=== PATIENT | female | born 2000 | race African-American/Black ===

== ENCOUNTER 2022-10-18 15:37 | Emergency (ER) | payer OTHER ==
--- OUTSIDE RECORDS SUMMARY | 2022-10-18 15:40 | XMS REPORT | Continuity of Care Document ---
:2000 Author Organization [facility] t Address [address] [facility] [address]. [address] [place] [address] Care Team Providers Name Role Phone PCP, PATIENT DOES NOT HAVE A Primary Care Physician UnavailGiselle Bansal MD Attending Clinician GISELLE MICHAEL Attending Clinician Unavailable Connor CHOI, Lauren K.H. Attending Clinician Maribel BOUDREAUX Attending Clinician Unavailable Maribel Romero Attending Clinician Emilie Heller Attending Clinician Unavailable SHAYY MENA Attending Clinician Unavailable Shayy Wei Attending Clinician [phone] Doctor Unassigned, [place] Attending Clinician Unavailable Carol Garcia Attending Clinician CAROL CHOI Attending Clinician Unavailable JOE ACHARYA Attending Clinician Unavailable Joe Acharya NP Attending Clinician ENDY VU Attending Clinician Unavailable Endy Vu MD Attending Clinician LAUREN RYAN Attending Clinician Unavailable СЕРГЕЙ AREVALO Attending Clinician Unavailable BRAD CARVAJAL Attending Clinician Unavailable SHAYY MENA Admitting Clinician Unavailable JOE ACHARYA Admitting Clinician Unavailable СЕРГЕЙ AREVALO Admitting Clinician Unavailable Payers Payer Name Policy Type Policy Number Effective Date Expiration Date Cholo BESS [id number] 2020 HEALTH 00:00:00 Problems Condition Condition Condition Status Onset Resolution Last Treating Co mments Source Name Details Category Date Date Treatment Clinician Date Abdominal Abdominal Disease Active Uni vers bloating bloating 1-27 ity of 00:00: Medical Branch Other Other Disease Active Univers general general 1-27 [place] of [place] advice and advice 00 Ut dical for for Branch contracept contracept jed jed management management BMI BMI Disease Active 2020-06 Univers 37.0-37.9, 37.0-37.9, 2-28 it y of adult adult 00:00: [place] [facility] Nausea and Nausea and Disease Active 2020-06 U nivers vomiting, vomiting, 2-28 ity of intractabi [place] of lity of 00 Medical vomiting vomiting Branch not not specified, specified, unspecifie unspecifie d vomiting d vomiting type type Screening Screening Disease Active Uni vers examinatio examinatio 8-20 it y of n for STD n [place] ST[place] ([place]ually (sexually 00 Medi maico transmitte transmitte Br anch d disease) d disease) [place] Disease Active Univers contracept contracept 8-20 it y of ion ion 00:00: [place] [facility] Allergies, Adverse Reactions, Alerts Allergy Allergy Status Severity Reaction(s) Onset Inactive Treating Comm ents Source Name Type Date Date Clinician NO KNOWN Drug Active Univers ALLERGIE Class ity of S [facility] Social History Social Habit Start Date Stop Date Quantity Comments Source Exposure to 2021-12-07 2021-12-17 Yes [facility] SARS-CoV-2 00:00:00 05:04:00 [place] [facility] (event) Branch Alcohol intake 2021-12-17 2021-12-17 Current University of 00:00:00 00:00:00 non-drinker of [facility] alcohol (finding) [place] Tobacco use and 2020-01-25 2020-01-25 Smokeless tobacco Un iversity of exposure 00:00:00 00:00:00 non-user [facility] Sex Assigned At 2000 2000 Universit y of 00:00:00 00:00:00 [facility] Smoking Status Start Date Stop Date Source Never smoked tobacco [facility] Medications Ordered Filled Start Stop Current Ordering Indication Dosage Frequency Signature Comments Components Source Medication Medication Date Date Medication? Clinician (SIG) Name Name ibuprofen 2021- No 800mg 800 mg, Uni vers (IBU) 12-17 Oral, ity of tablet 800 10:15: 10:13 ONCE, 1 [place] mg 00 :00 dose, On Medical Wed Branch 12/17/21 at 0515, HECTOR ibuprofen Yes [id number] 800mg Take 1 Univers 800 mg 7-13 tablet by ity of tablet 00:00: mouth [place] 00 every 8 Medical (eight) Branch hours as needed for Temp > 38.5 C or Pain (scale 4-6). benzonatate Yes [id number] 200mg Take 1 Univers 200 mg 7-13 capsule by ity of capsule 00:00: mouth 3 [place] 00 (three) Medical times Branch daily as needed for Cough. ondansetron Yes [id number] 4mg Take 1 Univers (ZOFRAN) 4 7-13 tablet by ity of mg tablet 00:00: mouth [place] 00 every 8 Medical (eight) Branch hours as needed for Nausea and Vomiting (N/V). dicyclomine 2021- No 20mg 20 mg, Uni vers (BENTYL) 07-30 Oral, ity of capsule 20 06:00: 05:05 ONCE, 1 [place] mg 00 :00 dose, On Medical Wed Branch 07/30/21 at 0000, Routine dicyclomine 0 Yes [id number] 20mg Take 1 Univers 20 mg 2-22 tablet by ity of tablet 00:00: mouth 4 [place] (four) Medical times Branch daily. dicyclomine 0 Yes [id number] 20mg Take 1 Univers 20 mg 2-22 tablet by ity of tablet 00:00: mouth 4 [place] (four) Medical times Branch daily. dicyclomine 0 Yes [id number] 20mg Take 1 Univers 20 mg 2-22 tablet by ity of tablet 00:00: mouth 4 [place] (four) Medical times Branch daily. albuterol Yes [id number] 2{puff} Inhale 2 Univers 90 6-12 Puffs ity of mcg/actuati 00:00: every 4 [place] on inhaler 00 (four) Medical hours as Branch needed for Wheezing or Shortness of Breath. albuterol Yes [id number] 2{puff} Inhale 2 Univers 90 6-12 Puffs ity of mcg/actuati 00:00: every 4 [place] on inhaler 00 (four) Medical hours as Branch needed for Wheezing or Shortness of Breath. albuterol Yes [id number] 2{puff} Inhale 2 Univers 90 6-12 Puffs ity of mcg/actuati 00:00: every 4 [place] on inhaler 00 (four) Medical hours as Branch needed for Wheezing or Shortness of Breath. albuterol Yes [id number] 2{puff} Inhale 2 Univers 90 6-12 Puffs ity of mcg/actuati 00:00: every 4 [place] on inhaler 00 (four) Medical hours as Branch needed for Wheezing or Shortness of Breath. fluocinolon Yes Univer s e 0.01 % 4-07 ity of body oil 00:00: [place] [facility] fluocinolon 0 Yes Univer s e 0.01 % 4-07 ity of body oil 00:00: [place] [facility] fluocinolon 2016-0 Yes Univer s e 0.01 % 4-07 ity of body oil 00:00: [place] [facility] fluocinolon Yes Univer s e 0.01 % 4-07 ity of body oil 00:00: [place] 00 Medical Branch fluticasone [id number] Yes Univer s 50 4-05 ity of mcg/actuati 00:00: [place] on nasal 00 Medical spray Branch mometasone 0 Yes Univers 0.1 % 4-05 ity of ointment 00:00: [place] 00 Medical Branch fluticasone [id number] Yes Univer s 50 4-05 ity of mcg/actuati 00:00: [place] on nasal 00 Medical spray Branch mometasone [id number] Yes Univers 0.1 % 4-05 ity of ointment 00:00: [place] 00 Medical Branch fluticasone 0 Yes Univer s 50 4-05 ity of mcg/actuati 00:00: [place] on nasal 00 Medical spray Branch mometasone Yes Univers 0.1 % 4-05 ity of ointment 00:00: [place] 00 Medical Branch fluticasone Yes Univer s 50 4-05 ity of mcg/actuati 00:00: [place] on nasal 00 Medical spray Branch mometasone Yes Univers 0.1 % 4-05 ity of ointment 00:00: [place] 00 Medical Branch Vital Signs Vital Name Observation Time Observation Value Comments Source Body temperature 2021-12-17 11:11:00 38.11 Tory [facility] Systolic blood 2021-12-17 10:06:00 112 mm[Hg] Univer sity of pressure [facility] Diastolic blood 2021-12-17 10:06:00 73 mm[Hg] Unive rsity of pressure [facility] Heart rate 2021-12-17 10:06:00 100 /min [facility] Respiratory rate 2021-12-17 10:06:00 18 /min [facility] Body height 2021-12-17 10:06:00 157.5 cm [facility] Body weight 2021-12-17 10:06:00 86.183 kg [facility] BMI 2021-12-17 10:06:00 34.75 kg/m2 [facility] Oxygen saturation in 2021-12-17 10:06:00 100 /min [facility] blood by [facility] Pulse oximetry Branch Systolic blood 2021-07-30 03:20:00 133 mm[Hg] Univer sity of pressure [facility] Diastolic blood 2021-07-30 03:20:00 68 mm[Hg] Unive rsity of pressure [facility] Heart rate 2021-07-30 03:20:00 85 /min [facility] Body temperature 2021-07-30 03:20:00 37.22 Tory [facility] Respiratory rate 2021-07-30 03:20:00 18 /min [facility] Body height 2021-07-30 03:20:00 157.5 cm [facility] Body weight 2021-07-30 03:20:00 87.091 kg [facility] BMI 2021-07-30 03:20:00 35.12 kg/m2 [facility] Oxygen saturation in 2021-07-30 03:20:00 100 /min [facility] Arterial blood by [facility] Pulse oximetry Branch Procedures Procedure Date / Time Performed Performing Clinician Robb e RAPID INFLUENZA A/B 2021-12-17 10:12:00 Giselle Michael [facility] COVID-19 (ID NOW RAPID 2021-12-17 10:12:00 Giselle Michael [facility] TESTING) [facility] Branch CONSENT/REFUSAL FOR 2021-12-17 09:57:24 Doctor Unassigned, No Un iversity of [place] DIAGNOSIS AND Name Medical [place] TREATMENT POCT TEST 2021-07-30 03:24:00 Giselle Michael [facility] URINALYSIS 2021-07-30 03:23:00 Giselle Michael [facility] CONSENT/REFUSAL FOR 2021-07-30 03:07:06 Doctor Unassigned, No Un iversity of [place] DIAGNOSIS AND Name Medical [place] TREATMENT Encounters Start End Encounter Admission Attending Care Care Encounter Source Date/Time Date/Time Type Type Clinicians Facility Department ID 2021-04-07 Emergency [facility] [id number] [facility]-07 Emergency [facility] [id number] Univers 02:40:27 ity of [facility] 2021-04-07 Emergency [facility] [id number] Univers 00:50:22 ity of [facility] 2021-04-06 Emergency [facility] [id number] Univers 04:02:40 ity of [facility] 2021-04-05 Emergency [facility] [id number] Univers 18:49:56 ity of [facility] 2021-04-05 Emergency [facility] [id number] Univers 17:13:06 ity of [facility] 2021-04-05 Emergency [facility] [id number] Univers 01:27:27 ity of [facility] 2021-12-17 2021-12-17 Emergency [facility] [id number] Univers 05:07:00 06:44:00 Giselle BAKER [id number] ity of [id number] [id number] [address] 2021-12-17 2021-12-17 Emergency X ELIZABETH, [facility] ERT [id number] Univers 05:07:00 06:44:00 ANIYAREMYLI ity of [facility] 2021-09-07 2021-09-07 [place] [facility] [id number] Univers 00:00:00 00:00:00 Sendil Candei BAKER [id number] ity of [place] [id number] [facility] [id number] Ut dical NAL 059 Branch [facility] 2021-07-29 2021-07-29 Emergency X JANUSZ K [facility] ERT [id number] Univers 21:38:00 23:12:00 ity of [facility] 2021-07-29 2021-07-29 Emergency Janusz, K [facility] [id number] Univers 21:38:00 23:12:00 Kenzie BAKER [id number] i ty of [id number] [id number] [address] 2021-07-18 2021-07-18 Telephone [facility] [id number] Univers 00:00:00 00:00:00 Emilie BAKER [id number] ity [facility] [id number] [facility] [id number] [facility] 806 [place] 2021-07-17 2021-07-17 Outpatient R [facility] [id number] Univers 16:13:22 23:59:00 SHAYY tinsley f [facility] 2021-07-17 2021-07-17 [facility] [id number] Univers 16:13:22 23:59:00 Encounter Shayy BAKER [id number] ity [facility] [id number] [facility] [id number] [address] 2021-07-17 2021-07-17 [facility] [id number] Univers 16:13:22 23:59:00 SHAYY meza [facility] 2021-07-17 2021-07-17 Orders Doctor SANTO [id number] Univers 00:00:00 00:00:00 Only Unassigned, ISI [id number] ity of [place] [facility] [id number] [place] [id number] [place] [address] Branch 2021-07-03 2021-07-03 [facility] [id number] Univers 16:00:00 16:41:07 SHAYY meza [facility] 2021-07-03 2021-07-03 [facility] [id number] Univers 16:00:00 16:41:07 Visit Shayy Sky [employer] DIRECT[employer] [id number] ity [facility] [id number] [place] as MATERNAL [id number] [facility] ical & CHILD [address] [place] [address] 2021-06-03 2021-06-03 Office [facility] [id number] Univers 08:30:00 10:31:02 Visit Carol Amaro [employer] DIRECT[employer] [id number] ity of [facility] [id number] [place] as MATERNAL [id number] Med ical & CHILD [address] [place] [address] 2021-06-03 2021-06-03 Outpatient Sondra CHOI [facility] [id number] Univers 08:30:00 10:31:02 CAROL tse o susana [facility] 2021-06-03 2021-06-03 Outpatient R STEPH [facility] [id number] Univers 08:30:00 08:30:00 CAROL tse o [facility] 2021-06-03 2021-06-03 Outpatient Sondra CHOI [facility] [id number] Univers 08:30:00 08:30:00 EMILYEVERETT tse o [facility] 2021-06-03 2021-06-03 Orders Doctor BLANCHARD [id number] Univers 00:00:00 00:00:00 Only Unassigned, ISI [id number] ity of [place] [facility] [id number] [place] [id number] [facility] 009 [place] 2021-04-06 2021-04-06 Emergency [facility] [id number] Univers 16:27:00 20:45:00 JOE tse [facility] 2021-04-06 2021-04-06 Emergency [facility] [id number] Univers 16:27:00 20:45:00 Joe G OLIVIA [id number] ity [facility] [id number] [facility] [id number] [facility] 084 [place] 2021-04-05 2021-04-05 Emergency X [facility] [id number] Univers 15:58:00 17:53:00 ENDY tse [facility] 2021-04-05 2021-04-05 Emergency [facility] [id number] Univers 15:58:00 17:53:00 Endy BAKER [id number] i ty of [place] [id number] [facility] [id number] [facility] 084 Branch 2021-04-05 2021-04-05 Orders Doctor SANTO [id number] Univers 00:00:00 00:00:00 Only Unassigned, ISI [id number] ity of [facility] [id number] [place] [id number] [facility] 009 Branch 2020-12-26 2020-12-26 Outpatient R [facility] [id number] Univers 08:00:00 08:00:00 ity [facility] 2020-12-25 2020-12-25 Outpatient R [facility] [id number] Univers 10:00:00 10:00:00 ity [facility] 2020-11-15 2020-11-15 Outpatient R [facility] [id number] Univers 18:20:00 18:20:00 ity [facility] 2020-10-18 2020-10-18 [facility] [id number] Univers 09:30:00 09:30:00 SENDIL ity [facility] 2020-10-03 2020-10-03 Outpatient R [facility] [id number] Univers 08:00:00 08:00:00 ity [facility] 2020-10-01 2020-10-01 [facility] [id number] Univers 14:00:00 14:00:00 SENDIL ity [facility] 2020-09-06 2020-09-06 [facility] [id number] Univers 15:30:00 15:30:00 [facility] 2020-08-12 2020-08-12 Emergency X IRINA [facility] ERT [id number] Univers 10:40:00 12:36:00 СЕРГЕЙ ity [facility] 2020-07-11 2020-07-11 Out[facility] [id number] Univers 08:30:00 08:30:00 SHAYY tse o f [facility] 2020-04-18 2020-04-18 Outpatient R [facility] [id number] Univers 08:00:00 08:00:00 ity [facility] 2020-04-02 2020-04-02 Outpatient R BRAD CARVAJAL [facility] [id number] Univers 15:30:00 15:30:00 ity [facility] 2020-01-25 2020-01-25 Outpatient R [facility] [id number] Univers 09:00:00 09:00:00 [facility] Results Test Description Test Time Test Comments Results Result Comments Source POCT TEST 2021-07-30 03:24:00 Test Item Value Reference Range Interpretation Comme nts POCT PREG (test code = 1605) NEG On board controls acceptable with C Line (test code = 3574) YES POCT PREG LOT # (test code = 3575) [id number] POCT PREG TEST DATE (test code = 3576) 08/04/2022 Lab Interpretation (test code = 75249-7) Normal [facility]
[2022-10-18 16:20] LABS: Absolute Lymphocytes (CBC) 2.1 K/uL (0.7-4.9); Lymphocytes % 33.2 % (15.3-44.8); MCV 79.1 fL (80-100); MPV 8.4 fL (7.6-11.3); RBC Red Blood Cell Count 5.06 M/uL (3.86-4.86)
[2022-10-18 16:38] LABS: Albumin 4.4 g/dL (3.4-5.0); Bilirubin Total 0.4 mg/dL (0.2-1.0); Potassium 3.7 mEq/L (3.5-5.1); Protein, Total 8.8 g/dL (6.4-8.2)
--- NOTE | 2022-10-18 17:06 | RAD REPORT ---
EXAM DESCRIPTION: US - Abdomen Exam Limited - 10/18/2022 5:00 pm CLINICAL HISTORY: ABD PAIN COMPARISON: No comparisons FINDINGS: The gallbladder demonstrates no gallstones. No pericholecystic fluid or gallbladder wall t hickening. The common bile duct is normal measuring 4 mm. The liver demonstrates no findings of intrahepatic biliary dilatation. IMPRESSION: Unremarkable examination.
[2022-10-18 17:11] LABS: Specific Gravity 1.022 (1.005-1.030); Urine Bilirubin NEGATIVE (Negative); Urine Blood Negative (Negative); Urine Clarity Clear (Clear); Urine Color Light-Yellow (Yellow); Urine Glucose NEGATIVE (Negative); Urine Protein NEGATIVE (Negative); Urine Urobilinogen Normal (Normal); Urine pH 6.5 (5.0-7.0)
[2022-10-18 17:18] LABS: Specific Gravity 1.022 (1.005-1.030)
--- NOTE | 2022-10-18 17:46 | RAD REPORT ---
EXAM DESCRIPTION: CTAbdomen Pelvis W Contrast - 10/18/2022 5:39 pm CLINICAL HISTORY: Abdominal pain. ABD PAIN COMPARISON: No comparisons TECHNIQUE: Biphasic CT imaging of the abdomen and pelvis was performed with 100 ml non-ionic IV cont rast. All CT scans are performed using dose optimization technique as appropriate and may include automated exposure control or mA/KV adjustment according to patient size. FINDINGS: The lung bases are clear. The liver, spleen, pancreas, adrenal glands and kidneys are within normal limits. No bowel obstruction, free air, free fluid or abscess. Significant stool is present in the colon. The appendix is normal. No evidence of significant lymphadenopathy. No suspicious bony findings. IMPRESSION: No acute intra-abdominal or pelvic finding. Moderate fecal retention.
--- NOTE | 2022-10-18 17:58 | ER ---
Nurse's Notes [facility] Name: Thanh Camp Age: 22 yrs Sex: Female : 2000 Arrival Date: 10/18/2022 Time: 15:37 Bed 15 Private MD: Diagnosis: Abdominal pain, Generalized;Lower abdominal pain, unspecified;Constipation Presentation: 10/18 15:48 Chief complaint: N/D and headache since yesterday, upper abdominal pain since this hb morning. Coronavirus screen: Client presents with at least one sign or symptom that may indicate coronavirus-19. Provider contacted for isolation considerations. Ebola Screen: No symptoms or risks identified at this time. Initial Sepsis Screen: Does the patient meet any 2 criteria? No. Patient's initial sepsis screen is negative. Does the patient have a suspected source of infection? No. Patient's initial sepsis screen is negative. Risk Assessment: Do you want to hurt yourself or someone else? Patient reports no desire to harm self or others. Onset of symptoms was October 17, 2022. 15:48 Method Of Arrival: Ambulatory hb 15:48 Acuity: FLORES 3 hb Historical: - Allergies: 15:49 No Known Allergies; hb - Home Meds: 15:49 None [Active]; hb - PMHx: 15:49 Anemia; Asthma; Irregular HR; hb - PSHx: 15:49 Knee - Left; Tonsillectomy; Adenoid excision; hb - Immunization history:: Adult Immunizations up to date. - Social history:: Smoking status: Patient denies any tobacco usage or history of. Screenin:51 [facility] ED Fall Risk Assessment (Adult) History of falling in the last 3 months, kc6 including since admission No falls in past 3 months (0 pts) Confusion or Disorientation No (0 pts) Intoxicated or Sedated No (0 pts) Impaired Gait No (0 pts) Mobility Assist Device Used No (0 pt) Altered Elimination No (0 pt) Score/Fall Risk Level 0 - 2 = Low Risk Oriented to surroundings, Maintained a safe environment, Educated pt \T\ family on fall prevention, incl call for assistance when getting out of bed, Assessed \T\ reinforced patient's understanding of fall precautions, Hourly rounding (assess needs \T\ fall precautionary measures) done. Abuse screen: Denies threats or abuse. Denies injuries from another. Nutritional screening: No deficits noted. Tuberculosis screening: No symptoms or risk factors identified. Assessment: 16:11 General: Appears in no apparent distress. comfortable, Behavior is calm, cooperative, kc6 appropriate for age. Pain: Complains of pain in epigastric area, right upper quadrant and left upper quadrant. Neuro: Cardenas Agitation-Sedation Scale (RASS): 0 - Alert and Calm Level of Consciousness is awake, alert, obeys commands, Oriented to person, place, time, situation, Appropriate for age. Cardiovascular: Capillary refill < 3 seconds. Respiratory: Airway is patent Trachea midline Respiratory effort is even, unlabored, Respiratory pattern is regular, symmetrical. GI: Abdomen is flat, non-distended, Bowel sounds present X 4 quads. Abd is soft X 4 quads Abdomen is tender to palpation in epigastric area, right upper quadrant and left upper quadrant Reports diarrhea, nausea, vomiting. : No signs and/or symptoms were reported regarding the genitourinary system. EENT: No signs and/or symptoms were reported regarding the EENT system. Derm: No signs and/or symptoms reported regarding the dermatologic system. Skin is intact, Skin is pink, warm \T\ dry. Musculoskeletal: No signs and/or symptoms reported regarding the musculoskeletal system. Circulation, motion, and sensation intact. Capillary refill < 3 seconds, Range of motion: intact in all extremities. 16:50 Reassessment: Patient appears in no apparent distress at this time. No changes from kc6 previously documented assessment. Patient and/or family updated on plan of care and expected duration. Pain level reassessed. Patient is alert, oriented x 3, equal unlabored respirations, skin warm/dry/pink. 17:45 Reassessment: Patient appears in no apparent distress at this time. No changes from kc6 previously documented assessment. Patient and/or family updated on plan of care and expected duration. Pain level reassessed. Patient is alert, oriented x 3, equal unlabored respirations, skin warm/dry/pink. Vital Signs: 15:48 BP 121 / 85; Pulse 74; Resp 16; Temp 98.8(O); Pulse Ox 100% on R/A; Weight 94.35 kg; hb Height 5 ft. 2 in. ; Pain 6/10; 16:54 BP 114 / 70; Pulse 69; Resp 17 S; Pulse Ox 99% on R/A; kc6 17:45 BP 112 / 82; Pulse 69; Resp 17 S; Pulse Ox 100% on R/A; kc6 15:48 Body Mass Index 38.04 (94.35 kg, 157.48 cm) hb 15:48 Pain Scale: Adult hb ED Course: 15:42 Patient arrived in ED. am2 15:43 Mattie Jones, RN is Primary Nurse. kc6 15:45 Clement Loera MD is Attending Physician. kdr 15:49 Triage completed. hb 15:49 Arm band placed on. hb 15:52 Patient has correct armband on for positive identification. Bed in low position. Call kc6 light in reach. Side rails up X 1. Adult w/ patient. 16:11 Inserted saline lock: 22 gauge in right wrist, using aseptic technique. Blood collected.kc6 16:49 Test, Urine Sent. kc6 16:49 Urinalysis w/ reflexes Sent. kc6 17:02 US Abdomen Limited In Process Unspecified. EDMS 17:41 CT Abd/Pelvis - IV Contrast Only In Process Unspecified. EDMS 18:07 No provider procedures requiring assistance completed. IV discontinued, intact, kc6 bleeding controlled, No redness/swelling at site. Pressure dressing applied. Administered Medications: 18:04 Drug: Magnesium Citrate PO Liquid 300 ml Route: PO; kc6 18:08 Follow up: Response: No adverse reaction kc6 18:04 Drug: Dulcolax PO Delayed Release Tablet 5 mg Route: PO; kc6 18:08 Follow up: Response: No adverse reaction kc6 Medication: 18:07 VIS not applicable for this client. kc6 Outcome: 17:58 Discharge ordered by . kdr 18:07 Discharged to home ambulatory, with family. kc6 18:07 Condition: improved 18:07 Discharge instructions given to patient, Instructed on discharge instructions, follow up and referral plans. medication usage, Demonstrated understanding of instructions, follow-up care, medications, Prescriptions given X 1. 18:08 Patient left the ED. kc6 Signatures: Dispatcher [employer] EDMS Clement Loera MD MD [facility] Chacha Amaya RN RN Lilly Leon am2 Mattie Jones, ÁLVARO RN kc
--- NOTE | 2022-10-18 17:58 | EDPHYS ---
Physician Documentation [facility] Name: Thanh Camp Age: 22 yrs Sex: Female : 2000 Arrival Date: 10/18/2022 Time: 15:37 Bed 15 Private MD: ED Physician Clement Loera HPI: 10/18 16:14 This 22 yrs old Black Female presents to ER via Ambulatory with complaints of Abdominal kdr Pain, Epigastric Pain. 16:14 Patient presents with upper abdominal pain that began this morning. Patient has also kdr had diarrhea x1 today. Patient denies any fever, chills, nausea or vomiting. Patient's not had this before. Patient and her mother feel that her abdomen is very distended. Her pain is sharp and persistent and not waxing and waning. She denies blood in her stool or hematemesis.. Onset: The symptoms/episode began/occurred this morning. Severity of symptoms: At their worst the symptoms were moderate in the emergency department the symptoms have improved mildly. The patient has not experienced similar symptoms in the past. The patient has not recently seen a physician. Patient was able to eat a small snack this morning without vomiting. She states that she had a normal bowel movement yesterday but has not been passing any gas today. Historical: - Allergies: 15:49 No Known Allergies; hb - Home Meds: 15:49 None [Active]; hb - PMHx: 15:49 Anemia; Asthma; Irregular HR; hb - PSHx: 15:49 Knee - Left; Tonsillectomy; Adenoid excision; hb - Immunization history:: Adult Immunizations up to date. - Social history:: Smoking status: Patient denies any tobacco usage or history of. ROS: 16:14 Constitutional: Negative for fever, chills, and weight loss, Eyes: Negative for injury, kdr pain, redness, and discharge, ENT: Negative for injury, pain, and discharge, Neck: Negative for injury, pain, and swelling, Cardiovascular: Negative for chest pain, palpitations, and edema, Respiratory: Negative for shortness of breath, cough, wheezing, and pleuritic chest pain, Back: Negative for injury and pain, : Negative for injury, bleeding, discharge, and swelling, MS/Extremity: Negative for injury and deformity, Skin: Negative for injury, rash, and discoloration, Neuro: Negative for headache, weakness, numbness, tingling, and seizure activity. Psych: Negative for depression, anxiety, suicide ideation, homicidal ideation, and hallucinations, Allergy/Immunology: Negative for hives, rash, and allergies, Endocrine: Negative for neck swelling, polydipsia, polyuria, polyphagia, and marked weight changes, Hematologic/Lymphatic: Negative for swollen nodes, abnormal bleeding, and unusual bruising. 16:14 Abdomen/GI: Positive for abdominal pain, diarrhea, Negative for constipation, dysphagia, hematemesis, black/tarry stool, rectal pain, rectal bleeding, bowel incontinence. Exam: 16:14 Constitutional: This is a well developed, well nourished patient who is awake, alert, kdr and in no acute distress. Head/Face: Normocephalic, atraumatic. Eyes: Pupils equal round and reactive to light, extra-ocular motions intact. Lids and lashes normal. Conjunctiva and sclera are non-icteric and not injected. Cornea within normal limits. Periorbital areas with no swelling, redness, or edema. Neck: Trachea midline, no thyromegaly or masses palpated, and no cervical lymphadenopathy. Supple, full range of motion without nuchal rigidity, or vertebral point tenderness. No Meningismus. Chest/axilla: Normal chest wall appearance and motion. Nontender with no deformity. No lesions are appreciated. Cardiovascular: Regular rate and rhythm with a normal S1 and S2. No gallops, murmurs, or rubs. Normal PMI, no JVD. No pulse deficits. Respiratory: Lungs have equal breath sounds bilaterally, clear to auscultation and percussion. No rales, rhonchi or wheezes noted. No increased work of breathing, no retractions or nasal flaring. Back: No spinal tenderness. No costovertebral tenderness. Full range of motion. Skin: Warm, dry with normal turgor. Normal color with no rashes, no lesions, and no evidence of cellulitis. MS/ Extremity: Pulses equal, no cyanosis. Neurovascular intact. Full, normal range of motion. Neuro: Awake and alert, GCS 15, oriented to person, place, time, and situation. Cranial nerves II-XII grossly intact. Motor strength 5/5 in all extremities. Sensory grossly intact. Cerebellar exam normal. Normal gait. Psych: Awake, alert, with orientation to person, place and time. Behavior, mood, and affect are within normal limits. 16:14 Abdomen/GI: Inspection: obese Bowel sounds: active, diminished, in all quadrants, Palpation: soft, mild abdominal tenderness, in the epigastric area and right upper quadrant, mass, is not appreciated, rebound tenderness, is not appreciated, voluntary guarding, is not appreciated, involuntary guarding, is not appreciated. Vital Signs: 15:48 BP 121 / 85; Pulse 74; Resp 16; Temp 98.8(O); Pulse Ox 100% on R/A; Weight 94.35 kg; hb Height 5 ft. 2 in. ; Pain 6/10; 16:54 BP 114 / 70; Pulse 69; Resp 17 S; Pulse Ox 99% on R/A; kc6 17:45 BP 112 / 82; Pulse 69; Resp 17 S; Pulse Ox 100% on R/A; kc6 15:48 Body Mass Index 38.04 (94.35 kg, 157.48 cm) hb 15:48 Pain Scale: Adult hb MDM: 16:14 Data reviewed: vital signs, nurses notes, lab test result(s), radiologic studies. kdr 17:58 Patient medically screened. [facility] 10/18 15:47 Order name: CBC with Diff; Complete Time: 16:44 [facility] 10/18 15:47 Order name: CMP; Complete Time: 16:44 [facility] 10/18 15:47 Order name: Lipase; Complete Time: 16:44 [facility] 10/18 15:47 Order name: Urinalysis w/ reflexes; Complete Time: 17:21 [facility] 10/18 16:01 Order name: Test, Urine; Complete Time: 17:21 [facility] 10/18 16:01 Order name: US Abdomen Limited; Complete Time: 17:11 [facility] 10/18 16:01 Order name: CT Abd/Pelvis - IV Contrast Only; Complete Time: 17:55 [facility] 10/18 15:47 Order name: IV Saline Lock; Complete Time: 16:10 [facility] 10/18 15:47 Order name: Labs collected and sent; Complete Time: 16:10 kdr Administered Medications: 18:04 Drug: Magnesium Citrate PO Liquid 300 ml Route: PO; kc6 18:08 Follow up: Response: No adverse reaction [facility] 18:04 Drug: Dulcolax PO Delayed Release Tablet 5 mg Route: PO; kc6 18:08 Follow up: Response: No adverse reaction kc6 Disposition Summary: 10/18/22 17:58 Discharge Ordered Location: Home kdr Problem: new kdr Symptoms: have improved kdr Condition: Stable kdr Diagnosis - Abdominal pain, Generalized kdr - Lower abdominal pain, unspecified kdr - Constipation kdr Followup: kdr - With: Private Physician - When: 2 - 3 days - Reason: If symptoms return, Further diagnostic work-up, Recheck today's complaints, Continuance of care, Re-evaluation by your physician Discharge Instructions: - Discharge Summary Sheet kdr - Constipation, Adult, [id number] kdr - Abdominal Pain, Adult, [id number] kdr Forms: - Medication Reconciliation Form kdr - Thank You Letter kdr Prescriptions: - Miralax 17 gram Oral powder in packet - take 1 packet by ORAL route daily As needed; 20 packet; Refills: 0, Product kdr Selection Permitted Signatures: Dispatcher [employer] Clement Morales MD MD kdr Chacha Amaya RN RN hb Campbell, Kaitlyn, RN RN kc6
[2022-10-18] MEDS ORDERED: BISACODYL E.C. 5 MG TAB PO ONE (18:06)
[2022-10-18] MEDS ORDERED: MAGNESIUM CITRATE 300 ML BOT ONE (18:07)
[2022-10-18 18:40] VITALS: TEMP 98.8
[2022-10-18 18:43] VITALS: BP 112/82; O2SAT 100
== END 2022-10-18 18:08 | disposition home or self-care (01) ==
LOC: ER 15:37
DX: K59.00 Constipation, unspecified (principal)
CPT/HCPCS: 85025; 36415; 81025; 81003; 83690; 80053; 74177; 76705; 99284; Q9967

== ENCOUNTER 2023-02-03 18:11 | Emergency (ER) | payer OTHER ==
--- OUTSIDE RECORDS SUMMARY | 2023-02-03 18:15 | XMS REPORT | Continuity of Care Document ---
:2000 Author Organization [facility] t Address [address] [place] [address] Care Team Providers Name Role Phone PCP, PATIENT DOES NOT HAVE A Primary Care Physician UnavailGiselle Bansal MD Attending Clinician GISELLE MICHAEL Attending Clinician Unavailable Connor CHOI, Lauren K.H. Attending Clinician Maribel BOUDREAUX Attending Clinician Unavailable Maribel Romero Attending Clinician Emilie Heller Attending Clinician Unavailable SHAYY MENA Attending Clinician Unavailable Shayy Wei Attending Clinician [phone] Doctor Unassigned, [place] Attending Clinician Unavailable Carol Garcia Attending Clinician CAROL CHOI Attending Clinician Unavailable JOE ACHARYA Attending Clinician Unavailable Joe Achraya NP Attending Clinician ENDY VU Attending Clinician Unavailable Endy Vu MD Attending Clinician LAUREN RYAN Attending Clinician Unavailable СЕРГЕЙ AREVALO Attending Clinician Unavailable BRAD CARVAJAL Attending Clinician Unavailable SHAYY MENA Admitting Clinician Unavailable JOE ACHARYA Admitting Clinician Unavailable СЕРГЕЙ AREVALO Admitting Clinician Unavailable Payers Payer Name Policy Type Policy Number Effective Date Expiration Date Cholo BESS [id number] 2020 HEALTH 00:00:00 Problems Condition Condition Condition Status Onset Resolution Last Treating Co mments Source Name Details Category Date Date Treatment Clinician Date Abdominal Abdominal Disease Active Uni vers bloating bloating 1-27 ity of 00:00: Medical Branch Other Other Disease Active Univers general general 1-27 it[place] of [place] advice and advice 00 Ak dical for for Branch contracept contracept jed jed management management BMI BMI Disease Active 2020-06 Univers 37.0-37.9, 37.0-37.9, 2-28 it y of adult adult 00:00: [place] [facility] Nausea and Nausea and Disease [...] 8-20 it y of ion ion 00:00: [place] [facility] Allergies, Adverse Reactions, Alerts Allergy Allergy Status Severity Reaction(s) Onset Inactive Treating Comm ents Source Name Type Date Date Clinician NO KNOWN Drug Active Univers ALLERGIE Class ity of S [facility] Social History Social Habit Start Date Stop Date Quantity Comments Source Exposure to 2021-12-07 2021-12-[address] [facility] SARS-CoV-2 00:00:00 05:04:00 [place] [facility] (event) Branch Alcohol intake 2021-12-17 2021-12-17 Current University of 00:00:00 00:00:00 non-drinker of [facility] alcohol (finding) [place] Tobacco use and 2020-01-25 2020-01-25 Smokeless tobacco Un iversity of exposure 00:00:00 00:00:00 non-user [facility] Sex Assigned At 2000 2000 Universit y of 00:00:00 00:00:00 [facility] Smoking Status Start Date Stop Date Source Never smoked tobacco [facility] Medications Ordered Filled Start Stop Current Ordering Indication Dosage Frequency Signature Comments Components Source Medication Medication Date Date Medication? Clinician (SIG) Name Name ibuprofen 2021- No 800mg 800 mg, Uni vers (IBU) 12-17 Oral, ity of tablet 800 10:15: 10:13 ONCE, 1 [place] as mg 00 :00 dose, On Medical Wed Branch 12/17/21 at 0515, HECTOR ibuprofen Yes [id number] 800mg Take 1 Univers 800 mg 7-13 tablet by ity of tablet 00:00: mouth [place] 00 every 8 Medical (eight) Branch hours as needed for Temp > 38.5 C or Pain (scale 4-6). benzonatate Yes [id number] 200mg Take 1 Univers 200 mg 7-13 capsule by ity of capsule 00:00: mouth 3 [place] 00 (three) Medical times Branch daily as needed for Cough. ondansetron Yes [id number] 4mg Take 1 Univers (ZOFRAN) 4 7-13 tablet by ity of mg tablet 00:00: mouth [place] 00 every 8 Medical (eight) Branch hours as needed for Nausea and Vomiting (N/V). dicyclomine 2021- No 20mg 20 mg, Uni vers (BENTYL) 07-30 Oral, ity of capsule 20 06:00: 05:05 ONCE, 1 [place] as mg 00 :00 dose, On Medical Wed Branch 07/30/21 at 0000, Routine dicyclomine 0 Yes [id number] 20mg Take 1 Univers 20 mg 2-22 tablet by ity of tablet 00:00: mouth 4 [place] (four) Medical times Branch daily. dicyclomine 0 Yes [id number] 20mg Take 1 Univers 20 mg 2-22 tablet by ity of tablet 00:00: mouth 4 [place] (four) Medical times Branch daily. dicyclomine 0 Yes [id number] 20mg Take 1 Univers 20 mg 2-22 tablet by ity of tablet 00:00: mouth 4 [place] (four) Medical times Branch daily. albuterol Yes [id number] 2{puff} Inhale 2 Univers 90 6-12 Puffs ity of mcg/actuati 00:00: every 4 [place] as on inhaler 00 (four) Medical hours as Branch needed for Wheezing or Shortness of Breath. albuterol Yes [id number] 2{puff} Inhale 2 Univers 90 6-12 Puffs ity of mcg/actuati 00:00: every 4 [place] as on inhaler 00 (four) Medical hours as Branch needed for Wheezing or Shortness of Breath. albuterol Yes [id number] 2{puff} Inhale 2 Univers 90 6-12 Puffs ity of mcg/actuati 00:00: every 4 [place] as on inhaler 00 (four) Medical hours as Branch needed for Wheezing or Shortness of Breath. albuterol Yes [id number] 2{puff} Inhale 2 Univers 90 6-12 Puffs ity of mcg/actuati 00:00: every 4 [place] as on inhaler 00 (four) Medical hours as Branch needed for Wheezing or Shortness of Breath. fluocinolon Yes Univer s e 0.01 % 4-07 ity of body oil 00:00: [place] [facility] fluocinolon 0 Yes Univer s e 0.01 % 4-07 ity of body oil 00:00: [place] [facility] fluocinolon 2016-0 Yes Univer s e 0.01 % 4-07 ity of body oil 00:00: [place] [facility] fluocinolon Yes Univer s e [...] Source Body temperature 2021-12-17 11:11:00 38.11 Tory [facility] Systolic blood 2021-12-17 10:06:00 112 mm[Hg] Univer sity of pressure [facility] Diastolic blood 2021-12-17 10:06:00 73 mm[Hg] Unive rsity of pressure [facility] Heart rate 2021-12-17 10:06:00 100 /min [facility] Respiratory rate 2021-12-17 10:06:00 18 /min [facility] Body height 2021-12-17 10:06:00 157.5 cm [facility] Body weight 2021-12-17 10:06:00 86.183 kg [facility] BMI 2021-12-17 10:06:00 34.75 kg/m2 [facility] Oxygen saturation in 2021-12-17 10:06:00 100 /min [facility] blood by [facility] Pulse oximetry Branch Systolic blood 2021-07-30 03:20:00 133 mm[Hg] Univer sity of pressure [facility] Diastolic blood 2021-07-30 03:20:00 68 mm[Hg] Unive rsity of pressure [facility] Heart rate 2021-07-30 03:20:00 85 /min [facility] Body temperature 2021-07-30 03:20:[address] [facility] Respiratory rate 2021-07-30 03:20:00 18 /min [facility] Body height 2021-07-30 03:20:00 157.5 cm [facility] Body weight 2021-07-30 03:20:00 87.091 kg [facility] BMI 2021-07-30 03:20:00 35.12 kg/m2 [facility] Oxygen saturation in 2021-07-30 03:20:00 100 /min [facility] Arterial blood by [facility] Pulse oximetry Branch Procedures Procedure Date / Time Performed Performing Clinician Robb e RAPID INFLUENZA A/B 2021-12-17 10:12:00 Giselle Michael [facility] COVID-19 (ID NOW RAPID 2021-12-17 10:12:[address] [facility] TESTING) [facility] Branch CONSENT/REFUSAL FOR 2021-12-17 09:57:24 Doctor Unassigned, No Un iversity of [place] DIAGNOSIS AND Name Medical [place] TREATMENT POCT TEST 2021-07-30 03:24:00 Giselle Michael [facility] URINALYSIS 2021-07-30 03:23:00 Giselle Michael [facility] CONSENT/REFUSAL FOR 2021-07-30 03:07:06 Doctor Unassigned, No Un iversity of [place] DIAGNOSIS AND Name Medical [place] TREATMENT Encounters Start End Encounter Admission Attending Care Care Encounter Source Date/Time Date/Time Type Type Clinicians Facility Department ID 2021-04-07 Emergency [facility] [id number] Univers 13:54:[address] [facility] [place] [place] 2021-04-07 Emergency [facility] [id number] Univers 02:40:27 ity of [facility] 2021-04-07 Emergency [facility] [id number] Univers 00:50:22 ity of [facility] 2021-04-06 Emergency [facility] [id number] Univers 04:02:40 ity of [facility] 2021-04-05 Emergency [facility] [id number] Univers 18:49:56 ity of [facility] 2021-04-05 Emergency [facility] [id number] Univers 17:13:06 ity of [facility] 2021-04-05 Emergency [facility] [id number] Univers 01:27:27 ity of [facility] 2021-12-17 2021-12-17 Emergency [facility] [id number] Univers 05:07:00 06:44:00 Giselle BAKER [id number] ity of [id number] [id number] [address] 2021-12-17 2021-12-17 Emergency X ELIZABETH, [facility] ERT [id number] Univers 05:07:00 06:44:00 ANIYAREMYLI ity of [facility] 2021-09-07 2021-09-07 [facility] [id number] Univers 00:00:00 00:00:00 Sendil Candie BAKER [id number] ity of [place] [id number] [facility] [id number] Ak dical NAL [address] [facility] 2021-07-29 2021-07-29 Emergency X JANUSZ K [facility] ERT [id number] Univers 21:38:00 23:12:00 ity of [facility] 2021-07-29 2021-07-29 Emergency Janusz, K [facility] [id number] Univers 21:38:00 23:12:00 Kenzie BAKER [id number] i ty [id number] [id number] [address] 2021-07-18 2021-07-18 Telephone [facility] [id number] Univers 00:00:00 00:00:00 Emilie BAKER [id number] ity [facility] [id number] [facility] [id number] [facility] 8[address] [place] 2021-07-17 2021-07-17 Outpatient R [facility] [id number] Univers 16:13:22 23:59:00 SHAYY tinsley f [facility] 2021-07-17 2021-07-17 [facility] [id number] Univers 16:13:22 23:59:00 Encounter Shayy BAKER [id number] ity [facility] [id number] [facility] [id number] [address] 2021-07-17 2021-07-17 [facility] [id number] Univers 16:13:22 23:59:00 SHAYY meza [facility] 2021-07-17 2021-07-17 Orders Doctor SANTO [id number] Univers 00:00:00 00:00:00 Only Unassigned, ISI [id number] ity of [place] [facility] [id number] [place] [id number] [place] [address] Branch 2021-07-03 2021-07-03 [facility] [id number] Univers 16:00:00 16:41:07 SHAYY meza [facility] 2021-07-03 2021-07-03 [facility] [id number] Univers 16:00:00 16:41:07 Visit Shayy Sky [employer] [id number] ity [facility] [id number] [place] as MATERNAL [id number] [facility] ical & CHILD [address] [place] [address] 2021-06-03 2021-06-03 Office [facility] [id number] Univers 08:30:00 10:31:02 Visit Carol Amaro [employer] [id number] ity of [facility] [id number] [place] as MATERNAL [id number] Med ical & CHILD [address] [place] [address] 2021-06-03 2021-06-03 Outpatient Sondra CHOI [facility] [id number] Univers 08:30:00 10:31:02 CAROL ste o susana [facility] 2021-06-03 2021-06-03 Outpatient R STEPH [facility] [id number] Univers 08:30:00 08:30:00 CAROL tse o [facility] 2021-06-03 2021-06-03 Outpatient Sondra CHOI [facility] [id number] Univers 08:30:00 08:30:00 EMILYEVERETT tse o [facility] 2021-06-03 2021-06-03 Orders Doctor BLANCHARD [id number] Univers 00:00:00 00:00:00 Only Unassigned, ISI [id number] ity of [place] [facility] [id number] [place] as [id number] [facility] [address] [place] 2021-04-06 2021-04-06 Emergency [facility] ERT [id number] Univers 16:27:00 20:45:00 JOE tse [facility] 2021-04-06 2021-04-06 Emergency [facility] [id number] Univers 16:27:00 20:45:00 Joe G OLIVIA [id number] ity [facility] [id number] [facility] [id number] [facility] 084 [place] 2021-04-05 2021-04-05 Emergency X [facility] ERT [id number] Univers 15:58:00 17:53:00 ENDY tse [facility] 2021-04-05 2021-04-05 Emergency [facility] [id number] Univers 15:58:00 17:53:00 Endy BAKER [id number] i ty of [place] [id number] [facility] [id number] [facility] 084 Branch 2021-04-05 2021-04-05 Orders Doctor SANTO [id number] Univers 00:00:00 00:00:00 Only Unassigned, ISI [id number] [facility] [id number] [place] [id number] [facility] 009 Branch 2020-12-26 2020-12-26 Outpatient R [facility] [id number] Univers 08:00:00 08:00:00 ity [facility] 2020-12-25 2020-12-25 Outpatient R [facility] [id number] Univers 10:00:00 10:00:00 ity [facility] 2020-11-15 2020-11-15 Outpatient R [facility] [id number] Univers 18:20:00 18:20:00 ity [facility] 2020-10-18 2020-10-18 [facility] [id number] Univers 09:30:00 09:30:00 SENDIL ity [facility] 2020-10-03 2020-10-03 Outpatient R [facility] [id number] Univers 08:00:00 08:00:00 ity [facility] 2020-10-01 2020-10-01 [facility] [id number] Univers 14:00:00 14:00:00 SENDIL ity [facility] 2020-09-06 2020-09-06 [facility] [id number] Univers 15:30:00 15:30:[address] [facility] [place] [place] 2020-08-12 2020-08-12 Emergency X IRINA [facility] ERT [id number] Univers 10:40:00 12:36:00 СЕРГЕЙ ity [facility] 2020-07-11 2020-07-11 Outpatient R AKINWEST [facility] [id number] Univers 08:30:00 08:30:00 SHAYY tse o f [facility] 2020-04-18 2020-04-18 Outpatient R [facility] [id number] Univers 08:00:00 08:00:00 ity [facility] 2020-04-02 2020-04-02 Outpatient R BRAD CARVAJAL [facility] [id number] Univers 15:30:00 15:30:00 ity [facility] 2020-01-25 2020-01-25 Outpatient R [facility] [id number] Univers 09:00:00 09:00:00 [facility] Results Test Description Test Time Test Comments Results Result Comments Source POCT TEST 2021-07-30 03:24:00 Test Item Value Reference Range Interpretation Comme nts POCT PREG (test code = 1605) NEG On board controls acceptable with C Line (test code = 3574) YES POCT PREG LOT # (test code = 3575) [id number] POCT PREG TEST DATE (test code = 3576) 08/04/2022 Lab Interpretation (test code = 26841-7) Normal [facility]
--- NOTE | 2023-02-03 19:17 | EDPHYS ---
Physician Documentation [facility] Name: Thanh Camp Age: 22 yrs Sex: Female : 2000 Arrival Date: 02/03/2023 Time: 18:11 Bed 20 Private MD: ED Physician Moni Carpenter HPI: 02/03 18:33 This 22 yrs old Black Female presents to ER via Ambulatory with complaints of kb Congestion, Body Aches. 18:33 The patient or guardian reports cough, that is intermittent, described as mild, flu kb symptoms, low-grade fever, myalgias. Onset: The symptoms/episode began/occurred 1 week(s) ago. Severity of symptoms: At their worst the symptoms were moderate, in the emergency department the symptoms are unchanged. Modifying factors: The symptoms are alleviated by nothing, the symptoms are aggravated by nothing. Associated signs and symptoms: Pertinent positives: fever, rhinorrhea, sore throat, Pertinent negatives: chest pain, diarrhea, ear ache, nausea, vomiting. The patient has not experienced similar symptoms in the past. The patient has not recently seen a physician. Patient is a 22-year-old female who presents for body aches, fever, chills, sore throat, cough and congestion that started 1 week ago and symptoms have gotten worse over the last couple of days.. 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 - Social history:: Smoking status: Reported history of juuling and/or vaping. ROS: 18:33 Cardiovascular: Negative for chest pain, palpitations, and edema. kb 18:33 Constitutional: Positive for body aches, chills, fatigue, fever, malaise. 18:33 ENT: Positive for rhinorrhea, sinus congestion, sore throat. 18:33 Respiratory: Positive for cough. 18:33 All other systems are negative. Exam: 18:33 Constitutional: This is a well developed, well nourished patient who is awake, alert, kb and in no acute distress. Head/Face: Normocephalic, atraumatic. ENT: Moist Mucous membranes Cardiovascular: Regular rate and rhythm with a normal S1 and S2. No gallops, murmurs, or rubs. No pulse deficits. Respiratory: Respirations even and unlabored. No increased work of breathing. Talking in full sentences Abdomen/GI: Soft, non-tender. No distention Skin: Warm, dry with normal turgor. Normal color. MS/ Extremity: Pulses equal, no cyanosis. Neurovascular intact. Full, normal range of motion. Neuro: Awake and alert, GCS 15, oriented to person, place, time, and situation. Moves all extremities. Normal gait. Vital Signs: 18:18 Pulse 101; Resp 19; Temp 99; Pulse Ox 100% ; Weight 90.72 kg; Pain 7/10; ap3 19:31 BP 128 / 79; Pulse 89; Resp 16; Temp 98.1; Pulse Ox 100% on R/A; iw 18:18 Pain Scale: Adult ap3 MDM: 18:17 Patient medically screened. kb 18:33 Differential Diagnosis: Other Flu, COVID, strep, URI. Data reviewed: vital signs, kb nurses notes. 18:34 Test considered but Not performed: X-ray: Chest x-ray considered but lungs are clear kb bilaterally, respirations even and unlabored oxygen 100% on room air. 19:07 Counseling: I had a detailed discussion with the patient and/or guardian regarding the kb historical points, exam findings, and any diagnostic results supporting the discharge/admit diagnosis, lab results, the need for outpatient follow up, a family practitioner, to return to the emergency department if symptoms worsen or persist or if there are any questions or concerns that arise at home. 02/03 18:19 Order name: Flu; Complete Time: 18:51 kb 02/03 18:19 Order name: Strep; Complete Time: 18:51 kb 02/03 18:19 Order name: SARS-COV-2 RT PCR; Complete Time: 19:07 kb 02/03 18:47 Order name: Throat Culture EDMS Administered Medications: No medications were administered Disposition Summary: 02/03/23 19:16 Discharge Ordered Location: Home kb Condition: Stable kb Diagnosis - Acute upper respiratory infection, unspecified kb Followup: kb - With: Emergency Department - When: As needed - Reason: Worsening of condition Followup: kb - With: Private Physician - When: 2 - 3 days - Reason: Recheck today's complaints, Continuance of care, Re-evaluation by your physician Discharge Instructions: - Discharge Summary Sheet kb - Upper Respiratory Infection, Adult, [id number] kb - Viral Respiratory Infection, [id number] kb Forms: - Work release form kb - Medication Reconciliation Form kb - Thank You Letter kb - Antibiotic Education kb - Prescription Opioid Use kb - Patient Portal Instructions kb - Leadership Thank You Letter kb Signatures: Dispatcher [employer] Kennedi Chinchilla, GROUP RESERVATIONS COORDINATOR-C MAURIZIO-Lilly Mas, RN RN ap3
--- NOTE | 2023-02-03 19:17 | ER ---
Nurse's Notes [facility] Name: Thanh Camp Age: 22 yrs Sex: Female : 2000 Arrival Date: 02/03/2023 Time: 18:11 Bed 20 Private MD: Diagnosis: Acute upper respiratory infection, unspecified Presentation: 02/03 18:18 Chief complaint: Patient states: she has been having cough, congestion, body aches and ap3 a sore throat for about a week now, but symptoms have been getting worse over the last couple of days. Coronavirus screen: Client presents with at least one sign or symptom that may indicate coronavirus-19. Ebola Screen: No symptoms or risks identified at this time. Initial Sepsis Screen: Does the patient meet any 2 criteria? No. Patient's initial sepsis screen is negative. Does the patient have a suspected source of infection? No. Patient's initial sepsis screen is negative. Risk Assessment: Do you want to hurt yourself or someone else? Patient reports no desire to harm self or others. Onset of symptoms was January 27, 2023. 18:18 Method Of Arrival: Ambulatory ap3 18:18 Acuity: FLORES 4 ap3 Triage Assessment: 18:19 General: Appears ill, Behavior is calm, cooperative, appropriate for age. Pain: ap3 Complains of pain in generalized body aches Pain currently is 7 out of 10 on a pain scale. Neuro: Level of Consciousness is awake, alert, obeys commands, Oriented to person, place, time, situation. Cardiovascular: Patient's skin is warm and dry. Respiratory: Reports cough that is Airway is patent Respiratory effort is even, unlabored, Respiratory pattern is regular, symmetrical. 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 - Social history:: Smoking status: Reported history of juuling and/or vaping. Screenin:19 [facility] ED Fall Risk Assessment (Adult) History of falling in the last 3 months, ap3 including since admission No falls in past 3 months (0 pts). Abuse screen: Denies threats or abuse. Nutritional screening: No deficits noted. Tuberculosis screening: No symptoms or risk factors identified. Assessment: 19:10 General: Appears in no apparent distress. comfortable, Behavior is calm, cooperative. iw General: Reports feeling ill for fatigue for. Pain: Complains of pain in body aches. Cardiovascular: Patient's skin is warm and dry. Respiratory: Breath sounds are clear bilaterally. Respiratory: Respiratory effort is even, unlabored, Respiratory pattern is regular, symmetrical. Derm: Skin is intact, is healthy with good turgor. Vital Signs: 18:18 Pulse 101; Resp 19; Temp 99; Pulse Ox 100% ; Weight 90.72 kg; Pain 7/10; ap3 19:31 BP 128 / 79; Pulse 89; Resp 16; Temp 98.1; Pulse Ox 100% on R/A; iw 18:18 Pain Scale: Adult ap3 ED Course: 18:13 Patient arrived in ED. rg4 18:17 Kennedi Winslow FNP-C is [facility]. kb 18:17 Moni Carpenter MD is Attending Physician. kb 18:19 Triage completed. ap3 18:20 Arm band placed on right wrist. ap3 19:06 Leigh Escoto, RN is Primary Nurse. iw 19:19 Patient has correct armband on for positive identification. Provided Education on: . iw 19:19 No provider procedures requiring assistance completed. Patient did not have IV access iw during this emergency room visit. Administered Medications: No medications were administered Medication: 19:19 VIS not applicable for this client. iw Outcome: 19:16 Discharge ordered by MD. kb 19:32 Discharged to home ambulatory, with family. iw 19:32 Condition: good 19:32 Discharge instructions given to patient, family, Instructed on discharge instructions, follow up and referral plans. Demonstrated understanding of instructions, follow-up care. 19:32 Patient left the ED. iw Signatures: Kennedi Winslow FNP-C FNP-Leigh Elena, RN Judi Noel rg4 Lilly Olivares RN RN ap3
[2023-02-03 19:44] VITALS: O2SAT 100
[2023-02-03 19:47] VITALS: BP 128/79; TEMP 98.1
== END 2023-02-03 19:32 | disposition home or self-care (01) ==
LOC: ER 18:11
DX: J06.9 Acute upper respiratory infection, unspecified (principal); Z20.822 Contact with and (suspected) exposure to COVID-19
CPT/HCPCS: 87070; 87081; 87635; 87804

== ENCOUNTER → 2023-06-03 | Emergency (ER) | payer OTHER ==
--- OUTSIDE RECORDS SUMMARY | 2023-06-03 20:56 | XMS REPORT | Continuity of Care Document ---
Author Name Unknown Address [address] [facility] [address] [place] [address] [facility] thconnect Address [address] [facility] [address] [place] [address] Care Team Providers Care Editor Producer Name Role Phone JAEL HOLLEY Primary Care Physician Unava ilable SHAYY CROUCH Attending Clinician Unavail able Shayy Wei Attending Clinician + Doctor Unassigned, [facility] Attending Clinician U vincenzoailGISELLE Gutierrez Attending Clinician Unavailable Giselle Michael MD Attending Clinician [phone] Lauren Ryan MD Attending Clinician + [phone] Maribel BOUDREAUX Attending Clinician Unavailable Maribel Romero Attending Clinician [phone] Gabe GNEmilie Lizama Attending Clinician Unav ailable Choi Carol STEVEN Attending Clinician + [phone] CHOICAROL Attending Clinician Unavailab JOE Smart Attending Clinician Unavailable Joe Acharya NP Attending Clinician [phone] ENDY VU Attending Clinician Unavailable Endy Vu MD Attending Clinician [phone] LAUREN RYAN Attending Clinician Unavaila СЕРГЕЙ Horner Attending Clinician Unavailable BRAD CARVAJAL Attending Clinician Unavailable SHAYY CROUCH Admitting Clinician Unavail able JOE ACHARYA Admitting Clinician Unavailable СЕРГЕЙ AREVALO Admitting Clinician Unavailable Payers Payer Name Policy Type Policy Number Effective Date Expirati on Date Source [facility] [id number] 2020 00:00:00 [facility] [id number] 2021 00:00:00 Problems Condition Name Condition Details Condition Category Status Onset Date Resolution Date Last Treatment Date Treating Clinician Comments Source Abdominal bloating Abdominal bloating Disease Active 07-03 00:00: 00 [facility] Other general counseling and advice for contracept jed management Other general counseling and advice for contracept jed management Disease Active 07-03 00:00: 00 [facility] BMI 37.0-37.9, adult BMI 37.0-37.9, adult Disease Active 2020-06 00:00: 00 [facility] Nausea and vomiting, intractabi lity of vomiting not specified, unspecifie d vomiting type Nausea and vomiting, intractabi lity of vomiting not specified, unspecifie d vomiting type Disease Active 2020-06 00:00: 00 [facility] Screening examinatio n for STD (sexually transmitte d disease) Screening examinatio n for STD (sexually transmitte d disease) Disease Active 01-24 00:00: 00 [facility] Depot contracept ion Depot contracept ion Disease Active 01-24 00:00: 00 [facility] Allergies, Adverse Reactions, Alerts Allergy Name Allergy Type Status Severity Reaction(s) Onset Date Inactive Date Treating Clinician Comments Source NO KNOWN ALLERGIE S Drug Class Active [facility] Social History Social Habit Start Date Stop Date Quantity Comments Source Sexual orientation [facility] Tobacco use and exposure 2023-04-15 00:00:00 2023-04-15 00:00:00 Smokeless tobacco non-user [facility] Alcohol intake 2023-04-15 00:00:00 2023-04-15 00:00:00 Current non-drinker of alcohol (finding) [facility] Exposure to SARS-CoV-2 (event) 2021-12-07 00:00:00 2021-12-17 05:04:00 Yes [facility] History of Social function 2020-11-15 00:00:00 2020-11-15 00:00:00 [facility] Sex Assigned At 2000 00:00:00 2000 00:00:00 [facility] Smoking Status Start Date Stop Date Source Never smoked tobacco [facility] Medications Ordered Medication Name Filled Medication Name Start Date Stop Date Current Medication? Ordering Clinician Indication Dosage Frequency Signature (SIG) Comments Components Source ibuprofen (IBU) tablet 800 mg 12-17 10:15: 00 12-17 10:13 :00 No 800mg 800 mg, Oral, ONCE, 1 dose, On Wed12/17/21 at 0515, HECTOR [facility] ibuprofen 800 mg tablet 12-17 00:00: 00 Yes [id number] 800mg Take 1 tablet by mouth every 8 (eight) hours as needed for Temp > 38.5 C or Pain (scale 4-6). [facility] benzonatate 200 mg capsule 12-17 00:00: 00 Yes [id number] 200mg Take 1 capsule by mouth 3 (three) times daily as needed for Cough. [facility] ondansetron (ZOFRAN) 4 mg tablet 12-17 00:00: 00 Yes [id number] 4mg Take 1 tablet by mouth every 8 (eight) hours as needed for Nausea and Vomiting (N/V). [facility] ibuprofen 800 mg tablet 2-0 7-13 00:00: 00 Yes [id number] 800mg Take 1 tablet by mouth every 8 (eight) hours as needed for Temp > 38.5 C or Pain (scale 4-6). [facility] benzonatate 200 mg capsule 2-0 7-13 00:00: 00 Yes [id number] 200mg Take 1 capsule by mouth 3 (three) times daily as needed for Cough. [facility] ondansetron (ZOFRAN) 4 mg tablet 0 7-13 00:00: 00 Yes [id number] 4mg Take 1 tablet by mouth every 8 (eight) hours as needed for Nausea and Vomiting (N/V). [facility] ibuprofen 800 mg tablet 2021-0 7-13 00:00: 00 04-15 00:00 :00 No [id number] 800mg Take 1 tablet by mouth every 8 (eight) hours as needed for Temp > 38.5 C or Pain (scale 4-6). [facility] benzonatate 200 mg capsule 2021-0 7-13 00:00: 00 04-15 00:00 :00 No [id number] 200mg Take 1 capsule by mouth 3 (three) times daily as needed for Cough. [facility] ondansetron (ZOFRAN) 4 mg tablet 0 7-13 00:00: 00 04-15 00:00 :00 No [id number] 4mg Take 1 tablet by mouth every 8 (eight) hours as needed for Nausea and Vomiting (N/V). [facility] ibuprofen 800 mg tablet 2021-0 7-13 00:00: 00 04-15 00:00 :00 No [id number] 800mg Take 1 tablet by mouth every 8 (eight) hours as needed for Temp > 38.5 C or Pain (scale 4-6). [facility] benzonatate 200 mg capsule 2021-0 7-13 00:00: 00 04-15 00:00 :00 No [id number] 200mg Take 1 capsule by mouth 3 (three) times daily as needed for Cough. [facility] ondansetron (ZOFRAN) 4 mg tablet -13 00:00: 00 04-15 00:00 :00 No [id number] 4mg Take 1 tablet by mouth every 8 (eight) hours as needed for Nausea and Vomiting (N/V). [facility] ibuprofen 800 mg tablet 12-17 00:00: 00 04-15 00:00 :00 No [id number] 800mg Take 1 tablet by mouth every 8 (eight) hours as needed for Temp > 38.5 C or Pain (scale 4-6). [facility] benzonatate 200 mg capsule 12-17 00:00: 00 04-15 00:00 :00 No [id number] 200mg Take 1 capsule by mouth 3 (three) times daily as needed for Cough. [facility] ondansetron (ZOFRAN) 4 mg tablet 12-17 00:00: 00 04-15 00:00 :00 No [id number] 4mg Take 1 tablet by mouth every 8 (eight) hours as needed for Nausea and Vomiting (N/V). [facility] dicyclomine (BENTYL) capsule 20 mg 07-30 06:00: 00 07-30 05:05 :00 No 20mg 20 mg, Oral, ONCE, 1 dose, On Wed07/30/21 at 0000, Routine [facility] dicyclomine 20 mg tablet - 00:00: 00 Yes [id number] 20mg Take 1 tablet by mouth 4 (four) times daily. [facility] dicyclomine 20 mg tablet - 00:00: 00 Yes [id number] 20mg Take 1 tablet by mouth 4 (four) times daily. [facility] dicyclomine 20 mg tablet 0 - 00:00: 00 Yes [id number] 20mg Take 1 tablet by mouth 4 (four) times daily. [facility] dicyclomine 20 mg tablet - 00:00: 00 Yes [id number] 20mg Take 1 tablet by mouth 4 (four) times daily. [facility] dicyclomine 20 mg tablet 2-22 00:00: 00 04-15 00:00 :00 No [id number] 20mg Take 1 tablet by mouth 4 (four) times daily. [facility] dicyclomine 20 mg tablet 2-22 00:00: 00 04-15 00:00 :00 No [id number] 20mg Take 1 tablet by mouth 4 (four) times daily. [facility] dicyclomine 20 mg tablet 2 00:00: 00 04-15 00:00 :00 No [id number] 20mg Take 1 tablet by mouth 4 (four) times daily. [facility] risperiDONE 4 mg tablet 2020-06 09:15: 53 06-03 00:00 :00 No 4mg Take 4 mg by mouth at bedtime. [facility] risperiDONE 4 mg tablet 2020-06 09:15: 53 06-03 00:00 :00 No 4mg Take 4 mg by mouth at bedtime. [facility] albuterol 90 mcg/actuati on inhaler 11-16 00:00: 00 Yes [id number] 2{puff} Inhale 2 Puffs every 4 (four) hours as needed for Wheezing or Shortness of Breath. [facility] albuterol 90 mcg/actuati on inhaler 11-16 00:00: 00 Yes [id number] 2{puff} Inhale 2 Puffs every 4 (four) hours as needed for Wheezing or Shortness of Breath. [facility] albuterol 90 mcg/actuati on inhaler 11-16 00:00: 00 Yes [id number] 2{puff} Inhale 2 Puffs every 4 (four) hours as needed for Wheezing or Shortness of Breath. [facility] albuterol 90 mcg/actuati on inhaler 11-16 00:00: 00 Yes [id number] 2{puff} Inhale 2 Puffs every 4 (four) hours as needed for Wheezing or Shortness of Breath. [facility] albuterol 90 mcg/actuati on inhaler 11-16 00:00: 00 Yes [id number] 2{puff} Inhale 2 Puffs every 4 (four) hours as needed for Wheezing or Shortness of Breath. [facility] albuterol 90 mcg/actuati on inhaler 11-16 00:00: 00 Yes [id number] 2{puff} Inhale 2 Puffs every 4 (four) hours as needed for Wheezing or Shortness of Breath. [facility] albuterol 90 mcg/actuati on inhaler 11-16 00:00: 00 Yes [id number] 2{puff} Inhale 2 Puffs every 4 (four) hours as needed for Wheezing or Shortness of Breath. [facility] albuterol 90 mcg/actuati on inhaler 11-16 00:00: 00 Yes [id number] 2{puff} Inhale 2 Puffs every 4 (four) hours as needed for Wheezing or Shortness of Breath. [facility] albuterol 90 mcg/actuati on inhaler 11-16 00:00: 00 Yes [id number] 2{puff} Inhale 2 Puffs every 4 (four) hours as needed for Wheezing or Shortness of Breath. [facility] albuterol 90 mcg/actuati on inhaler 11-16 00:00: 00 04-15 00:00 :00 No [id number] 2{puff} Inhale 2 Puffs every 4 (four) hours as needed for Wheezing or Shortness of Breath. [facility] albuterol 90 mcg/actuati on inhaler 11-16 00:00: 00 04-15 00:00 :00 No [id number] 2{puff} Inhale 2 Puffs every 4 (four) hours as needed for Wheezing or Shortness of Breath. [facility] albuterol 90 mcg/actuati on inhaler 11-16 00:00: 00 04-15 00:00 :00 No [id number] 2{puff} Inhale 2 Puffs every 4 (four) hours as needed for Wheezing or Shortness of Breath. [facility] [place] [place] medroxyPROG ESTERone (DEPO-PROVE RA) injection 150 mg 8-20 15:00: 10-03 13:19 :00 No [id number] 150mg Univer s ity [facility] medroxyPROG ESTERone (DEPO-PROVE RA) injection 150 mg 820 15:00: 10-03 13:19 :00 No [id number] 150mg [facility]iver s [facility] promethazin e-codeine 6.25-10 mg/5 mL syrup 08-12 00:00: 00 08-12 00:00 :00 No 5mL Take 5 mL by mouth 4 (four) times daily as needed for Cough. [facility] sod chlor-bicar b-squeez bottle (NEILMED SINUS RINSE COMPLETE) [facility] 08-12 00:00: 08-12 00:00 :00 No 1{bottl e} Use 1 Bottle in each nostril 2 (two) times daily. Use in hot shower 1 hour before bedtime [facility] promethazin e-codeine 6.25-10 mg/5 mL syrup 08-12 00:00: 00 08-12 00:00 :00 No 5mL Take 5 mL by mouth 4 (four) times daily as needed for Cough. [facility] sod chlor-bicar b-squeez bottle (NEILMED SINUS RINSE COMPLETE) pkd 08-12 00:00: 00 08-12 00:00 :00 No 1{bottl e} Use 1 Bottle in each nostril 2 (two) times daily. Use in hot shower 1 hour before bedtime [facility] fluocinolon e 0.01 % body oil 09-11 00:00: 00 Yes [facility] ity [facility] fluocinolon e 0.01 % body oil 09-11 00:00: 00 Yes [facility] fluocinolon e 0.01 % body oil 09-11 00:00: 00 Yes [facility] fluocinolon e 0.01 % body oil 09-11 00:00: 00 Yes [facility] fluocinolon e 0.01 % body oil 09-11 00:00: 00 Yes [facility] fluocinolon e 0.01 % body oil 09-11 00:00: 00 Yes [facility] fluocinolon e 0.01 % body oil 09-11 00:00: 00 Yes [facility] fluocinolon e 0.01 % body oil 09-11 00:00: 00 Yes [facility] fluocinolon e 0.01 % body oil 09-11 00:00: 00 Yes [facility] fluocinolon e 0.01 % body oil 09-11 00:00: 00 Yes [facility] fluocinolon e 0.01 % body oil 09-11 00:00: 00 Yes [facility] fluocinolon e 0.01 % body oil 09-11 00:00: 00 Yes [facility] fluocinolon e 0.01 % body oil 09-11 00:00: 00 Yes [facility] fluocinolon e 0.01 % body oil 09-11 00:00: 00 Yes [facility] fluocinolon e 0.01 % body oil 09-11 00:00: 00 04-15 00:00 :00 No [facility] fluocinolon e 0.01 % body oil 09-11 00:00: 00 04-15 00:00 :00 No [facility] fluocinolon e 0.01 % body oil 09-11 00:00: 00 04-15 00:00 :00 No [facility] fluticasone 50 mcg/actuati on nasal spray 09-09 00:00: 00 Yes [facility] mometasone 0.1 % ointment 09-09 00:00: 00 Yes [facility] fluticasone 50 mcg/actuati on nasal spray 0 09-09 00:00: 00 Yes [facility] mometasone 0.1 % ointment 09-09 00:00: 00 Yes [facility] fluticasone 50 mcg/actuati on nasal spray 0 09-09 00:00: 00 Yes [facility] mometasone 0.1 % ointment 09-09 00:00: 00 Yes [facility] fluticasone 50 mcg/actuati on nasal spray 09-09 00:00: 00 Yes [facility] mometasone 0.1 % ointment 09-09 00:00: 00 Yes [facility] fluticasone 50 mcg/actuati on nasal spray 09-09 00:00: 00 Yes [facility] mometasone 0.1 % ointment 09-09 00:00: 00 Yes [facility] fluticasone 50 mcg/actuati on nasal spray 09-09 00:00: 00 Yes [facility] mometasone 0.1 % ointment 09-09 00:00: 00 Yes [facility] fluticasone 50 mcg/actuati on nasal spray 09-09 00:00: 00 Yes [facility] mometasone 0.1 % ointment 09-09 00:00: 00 Yes [facility] fluticasone 50 mcg/actuati on nasal spray 0 09-09 00:00: 00 Yes [facility] mometasone 0.1 % ointment 0 09-09 00:00: 00 Yes [facility] fluticasone 50 mcg/actuati on nasal spray 0 09-09 00:00: 00 Yes [facility] mometasone 0.1 % ointment 09-09 00:00: 00 Yes [facility] fluticasone 50 mcg/actuati on nasal spray 09-09 00:00: 00 Yes [facility] mometasone 0.1 % ointment 09-09 00:00: 00 Yes [facility] fluticasone 50 mcg/actuati on nasal spray 09-09 00:00: 00 Yes [facility] mometasone 0.1 % ointment 09-09 00:00: 00 Yes [facility] fluticasone 50 mcg/actuati on nasal spray 09-09 00:00: 00 Yes [facility] mometasone 0.1 % ointment 09-09 00:00: 00 Yes [facility] fluticasone 50 mcg/actuati on nasal spray 09-09 00:00: 00 Yes [facility] mometasone 0.1 % ointment 09-09 00:00: 00 Yes [facility] fluticasone 50 mcg/actuati on nasal spray 09-09 00:00: 00 Yes [facility] mometasone 0.1 % ointment 09-09 00:00: 00 Yes [facility] fluticasone 50 mcg/actuati on nasal spray 09-09 00:00: 00 04-15 00:00 :00 No [facility] mometasone 0.1 % ointment 09-09 00:00: 00 04-15 00:00 :00 No [facility] fluticasone 50 mcg/actuati on nasal spray 09-09 00:00: 00 04-15 00:00 :00 No [facility] mometasone 0.1 % ointment 09-09 00:00: 00 04-15 00:00 :00 No [facility] fluticasone 50 mcg/actuati on nasal spray 09-09 00:00: 00 04-15 00:00 :00 No [facility] mometasone 0.1 % ointment 09-09 00:00: 00 04-15 00:00 :00 No [facility] naproxen (NAPROSYN) 500 mg tablet 01-13 00:00: 00 08-12 00:00 :00 No 500mg Take 1 Tab by mouth 2 (two) times daily with meals. [facility] acetaminoph en-codeine (TYLENOL #2) 300-15 mg tablet 01-13 00:00: 00 08-12 00:00 :00 No 1{tbl} Take 1 Tab by mouth every 6 (six) hours as needed for Pain. [facility] naproxen (NAPROSYN) 500 mg tablet 01-13 00:00: 00 08-12 00:00 :00 No 500mg Take 1 Tab by mouth 2 (two) times daily with meals. [facility] acetaminoph en-codeine (TYLENOL #2) 300-15 mg tablet 01-13 00:00: 00 08-12 00:00 :00 No 1{tbl} Take 1 Tab by mouth every 6 (six) hours as needed for Pain. [facility] Immunizations Ordered Immunization Name Filled Immunization Name Date Status Comments Source HPV9 Unknown Completed [facility] HPV9 Unknown Completed [facility] HPV9 Unknown Completed [facility] Vital Signs Vital Name Observation Time Observation Value Comments S annemarievern Systolic blood pressure 2023-04-15 20:23:00 119 mm[Hg] [facility] Diastolic blood pressure 2023-04-15 20:23:00 79 mm[Hg] [facility] Heart rate 2023-04-15 20:23:00 79 /min [facility] Body temperature 2023-04-15 20:23:00 36.44 Tory [facility] Respiratory rate 2023-04-15 20:23:00 18 /min [facility] Body height 2023-04-15 20:23:00 157.5 cm [facility] Body weight 2023-04-15 20:23:00 93.804 kg [facility] BMI 2023-04-15 20:23:00 37.82 kg/m2 [facility] Body temperature 2021-12-17 11:11:00 38.11 Tory [facility] Systolic blood pressure 2021-12-17 10:06:00 112 mm[Hg] [facility] Diastolic blood pressure 2021-12-17 10:06:00 73 mm[Hg] [facility] Heart rate 2021-12-17 10:06:00 100 /min [facility] Respiratory rate 2021-12-17 10:06:00 18 /min [facility] Body height 2021-12-17 10:06:00 157.5 cm [facility] Body weight 2021-12-17 10:06:00 86.183 kg [facility] BMI 2021-12-17 10:06:00 34.75 kg/m2 [facility] Oxygen saturation in Arterial blood by Pulse oximetry 2021-12-17 10:06:00 100 /min [facility] Systolic blood pressure 2021-07-30 03:20:00 133 mm[Hg] [facility] Diastolic blood pressure 2021-07-30 03:20:00 68 mm[Hg] [facility] Heart rate 2021-07-30 03:20:00 85 /min [facility] Body temperature 2021-07-30 03:20:00 37.22 Tory [facility] Respiratory rate 2021-07-30 03:20:00 18 /min [facility] Body height 2021-07-30 03:20:00 157.5 cm [facility] Body weight 2021-07-30 03:20:00 87.091 kg [facility] BMI 2021-07-30 03:20:00 35.12 kg/m2 [facility] Oxygen saturation in Arterial blood by Pulse oximetry 2021-07-30 03:20:00 100 /min [facility] Procedures Procedure Date / Time Performed Performing Clinicia n Source GARDASIL 9 (HPV 9V) VACCINE 2023-04-15 20:32:05 Shayy Crouch [facility] CONSENT/REFUSAL FOR DIAGNOSIS AND TREATMENT 2023-04-15 20:10:29 Doctor Unassigned, [facility] RAPID INFLUENZA A/B 2021-12-17 10:12:00 Giselle Michael [facility] COVID-19 (ID NOW RAPID TESTING) 2021-12-17 10:12:00 Giselle Michael [facility] CONSENT/REFUSAL FOR DIAGNOSIS AND TREATMENT 2021-12-17 09:57:24 Doctor Unassigned, [facility] POCT TEST 2021-07-30 03:24:00 Giselle Michael [facility] URINALYSIS 2021-07-30 03:23:00 Giselle Michael [facility] CONSENT/REFUSAL FOR DIAGNOSIS AND TREATMENT 2021-07-30 03:07:06 Doctor Unassigned, [facility] Encounters Start Date/Time End Date/Time Encounter Type Admission Type Attending [facility] Care Facility Care Department Encounter ID Source 2021-04-07 13:54:48 Emergency [facility] [id number] [facility] 2021-04-07 02:40:27 Emergency [facility] [id number] [facility] 2021-04-07 00:50:22 Emergency [facility] [id number] [facility] 2021-04-06 04:02:40 Emergency [facility] [id number] [facility] 2021-04-05 18:49:56 Emergency [facility] [id number] [facility] 2021-04-05 17:13:06 Emergency [facility] [id number] [facility] 2021-04-05 01:27:27 Emergency [facility] [id number] [facility] 2023-10-21 14:30:00 2023-10-21 14:30:00 Outpatient R [facility] [id number] [facility] 2023-05-20 14:30:00 2023-05-20 14:30:00 Outpatient R [facility] [id number] [facility] 2023-04-21 15:00:00 2023-04-21 15:00:00 Outpatient R [facility] [id number] [facility] 2023-04-16 14:00:00 2023-04-16 14:00:00 Outpatient R [facility] [id number] [facility] 2023-04-15 14:15:00 2023-04-15 14:58:19 Outpatient R SHAYY CROUCH [facility] [id number] [facility] 2023-04-15 14:15:00 2023-04-15 14:58:19 Office Visit Shayy Crouch [facility] SOFTWARE EDUCATOR [facility] 1..[id number] [facility] 2023-04-15 00:00:00 2023-04-15 00:00:00 Orders Only Doctor Unassigned, [facility] 1..840.114 [id number] [facility] 2021-12-17 05:07:00 2021-12-17 06:44:00 Emergency X GISELLE MICHAEL [facility] ERT [id number] [facility] 2021-12-17 05:07:00 2021-12-17 06:44:00 Emergency Giselle Michael [facility] [id number] [facility] 2021-09-07 00:00:00 2021-09-07 00:00:00 Telephone Lauren Ryan [facility] [id number] [facility] 2021-07-29 21:38:00 2021-07-29 23:12:00 Emergency X Maribel BOUDREAUX [facility] ERT [id number] [facility] 2021-07-29 21:38:00 2021-07-29 23:12:00 Emergency Maribel Boudreaux [place] [facility] 1.2840.114 350.1.13.10 4.2.7.2.686 [id number] [facility] 2021-07-18 00:00:00 2021-07-18 00:00:00 Telephone Emilie Bernal [facility] 1.840.114 350.1.13.10 4.2.7.2.686 [id number] [facility] 2021-07-17 16:13:22 2021-07-17 23:59:00 Outpatient R SHAYY CROUCH [facility] [id number] [facility] 2021-07-17 16:13:22 2021-07-17 23:59:00 Hospital Encounter Shayy Crouch [facility] 1.2840.114 350.1.13.10 4.2.7.2.686 [id number] [facility] 2021-07-17 16:13:22 2021-07-17 23:59:00 Outpatient R SHAYY CROUCH [facility] [id number] [facility] 2021-07-17 00:00:00 2021-07-17 00:00:00 Orders Only Doctor Unassigned, [facility] 1.2840.114 350.1.13.10 4.2.7.2.686 [id number] [facility] 2021-07-05 00:00:00 2021-07-05 00:00:00 Patient Secure Msg Shayy Crouch [facility] SOFTWARE EDUCATOR [facility] 1.2.840.114 350.1.13.10 4.2.7.2.686 [id number] [facility] 2021-07-03 16:00:00 2021-07-03 16:41:07 Outpatient R SHAYY CROUCH [facility] [id number] [facility] 2021-07-03 16:00:00 2021-07-03 16:41:07 Office Visit Shayy Crouch [facility] SOFTWARE EDUCATOR [facility] 1.2.840.114 350.1.13.10 4.2.7.2.686 [id number] [facility] 2021-06-17 00:00:00 2021-06-17 00:00:00 Patient Secure Msg Shayy Crouch [facility] SOFTWARE EDUCATOR [facility] 1.2.840.114 350.1.13.10 4.2.7.2.686 [id number] [facility] 2021-06-17 00:00:00 2021-06-17 00:00:00 Patient Secure Msg Shayy Crouch [facility] SOFTWARE EDUCATOR [facility] 1.2.840.114 350.1.13.10 4.2.7.2.686 [id number] [facility] 2021-06-05 00:00:00 2021-06-05 00:00:00 Patient Secure Msg Shayy Crouch [facility] SOFTWARE EDUCATOR [facility] 1.2.840.114 350.1.13.10 4.2.7.2.686 [id number] [facility] 2021-06-03 08:30:00 2021-06-03 10:31:02 Office Visit Carol Choi [facility] SOFTWARE EDUCATOR [facility] 1.84.114 350.1.13.10 4.2.7.2.686 [id number] [facility] 2021-06-03 08:30:00 2021-06-03 10:31:02 Outpatient R EMILY CHOIJAMISONSHUNCristino [facility] [id number] [facility] 2021-06-03 08:30:00 2021-06-03 08:30:00 Outpatient EMILY BRADLEYJAMISONSHUNCristino [facility] [id number] [facility] 2021-06-03 08:30:00 2021-06-03 08:30:00 Outpatient EMILY BRADLEYEVERETT [facility] [id number] [facility] 2021-06-03 00:00:00 2021-06-03 00:00:00 Orders Only Doctor Unassigned, [facility] 1.840.114 350.1.13.10 4.2.7.2.686 [id number] [facility] 2021-04-06 16:27:00 2021-04-06 20:45:00 Emergency X JOE ACHARYA [facility] ERT [id number] [facility] 2021-04-06 16:27:00 2021-04-06 20:45:00 Emergency Joe Acharya [facility] 1.840.114 350.1.13.10 4.2.7.2.686 [id number] [facility] 2021-04-05 15:58:00 2021-04-05 17:53:00 Emergency X ENDY VU [facility] ERT [id number] [facility] 2021-04-05 15:58:00 2021-04-05 17:53:00 Emergency Endy Vu [facility] 1.84.114 350.1.13.10 4.2.7.2.686 [id number] [facility] 2021-04-05 00:00:00 2021-04-05 00:00:00 Orders Only Doctor Unassigned, [facility] 1.840.114 350.1.13.10 4.2.7.2.686 [id number] [facility] 2020-12-26 08:00:00 2020-12-26 08:00:00 Outpatient R [facility] [id number] [facility] 2020-12-25 10:00:00 2020-12-25 10:00:00 Outpatient R [facility] [id number] [facility] 2020-11-15 18:20:00 2020-11-15 18:20:00 Outpatient R [facility] [id number] [facility] 2020-10-18 09:30:00 2020-10-18 09:30:00 Outpatient R LAUREN RYAN [facility] [id number] [facility] 2020-10-03 08:00:00 2020-10-03 08:00:00 Outpatient R [facility] [id number] [facility] 2020-10-01 14:00:00 2020-10-01 14:00:00 Outpatient R LAUREN RYAN [facility] [id number] [facility] 2020-09-06 15:30:00 2020-09-06 15:30:00 Outpatient R LAUREN RYAN [facility] [id number] [facility] 2020-08-12 10:40:00 2020-08-12 12:36:00 Emergency X СЕРГЕЙ AREVALO [facility] ERT [id number] [facility] 2020-08-05 00:00:00 2020-08-05 00:00:00 Patient Secure Msg Doctor Unassigned, [facility] SOFTWARE EDUCATOR [facility] 1.2.840.114 350.1.13.10 4.2.7.2.686 [id number] [facility] 2020-07-11 08:30:00 2020-07-11 08:30:00 Outpatient R SHAYY CROUCH [facility] [id number] [facility] 2020-06-27 00:00:00 2020-06-27 00:00:00 Patient Secure Msg Doctor Unassigned, [facility] SOFTWARE EDUCATOR [facility] 1.2.840.114 350.1.13.10 4.2.7.2.686 [id number] [facility] 2020-06-26 00:00:00 2020-06-26 00:00:00 Patient Secure Msg Doctor Unassigned, [facility] SOFTWARE EDUCATOR [facility] 1.2.840.114 350.1.13.10 4.2.7.2.686 [id number] [facility] 2020-06-11 00:00:00 2020-06-11 00:00:00 Patient Secure Msg Doctor Unassigned, [facility] SOFTWARE EDUCATOR [facility] 1.2.840.114 350.1.13.10 4.2.7.2.686 [id number] [facility] 2020-06-04 00:00:00 2020-06-04 00:00:00 Patient Secure Msg Doctor Unassigned, [facility] SOFTWARE EDUCATOR [facility] 1.2.840.114 350.1.13.10 4.2.7.2.686 [id number] [facility] 2020-04-18 08:00:00 2020-04-18 08:00:00 Outpatient R [facility] [id number] [facility] 2020-04-02 15:30:00 2020-04-02 15:30:00 Outpatient R BRAD CARVAJAL [facility] [id number] [facility] 2020-01-25 09:00:00 2020-01-25 09:00:00 Outpatient R [facility] [id number] [facility] Results Test Description Test Time Test Comments Results Result Co mments Source [facility]
[2023-06-03 22:23] LABS: Specific Gravity > 1.030 (1.005-1.030); Urine Bacteria None Seen /HPF (<20); Urine Bilirubin NEGATIVE (Negative); Urine Blood Trace (Negative); Urine Clarity Turbid (Clear); Urine Color Yellow (Yellow); Urine Glucose NEGATIVE (Negative); Urine Mucus Slight /HPF (None Seen); Urine Protein TRACE (Negative); Urine RBC <5 /HPF (None Seen); Urine Urobilinogen Normal (Normal)
[2023-06-03 22:32] LABS: Specific Gravity 1.036 (1.005-1.030)
--- NOTE | 2023-06-03 23:27 | RAD REPORT ---
EXAM DESCRIPTION: CTAbdomen Pelvis Wo Contrast - 06/03/2023 11:18 pm CLINICAL HISTORY: Abd pain;Flank pain COMPARISON: Abdomen Pelvis W Contrast dated 10/18/2022 TECHNIQUE: CT of the abdomen and pelvis was performed. All CT scans are performed using dose optimization technique as appropriate and may include automated exposure control or mA/KV adjustment according to patient size. FINDINGS: Lower chest: No acute abnormality. Liver: No acute abnormality or suspicious lesions. Biliary: No biliary ductal dilatation. Stomach: No significant focal abnormality. Duodenum: No significant focal abnormality. Pancreas: No significant abnormality. Spleen: No significant abnormality. Adrenal: No suspicious lesions. Kidney/ureter: No hydronephrosis. No renal calculi. Retroperitoneum: No retroperitoneal adenopathy. Vascular: No aneurysm. Bowel: Normal appendix. No bowel obstruction. Peritoneum: No significant pelvic free fluid. Bladder: Grossly unremarkable. Reproductive: No adnexal masses. Bones: No acute fracture. Other: n/a IMPRESSION: No acute intra-abdominal or pelvic finding. Normal appendix. No urinary tract calculi. N o significant change compared with 10/18/2022.
--- NOTE | 2023-06-03 23:45 | EDPHYS ---
Physician Documentation [facility] Name: Thanh Camp Age: 23 yrs Sex: Female : 2000 Arrival Date: 06/03/2023 Time: 20:52 Bed 9 Private MD: ED Physician Elmo Dooley HPI: 06/03 21:39 This 23 yrs old Black Female presents to ER via Ambulatory with complaints of Abdominal sb4 Pain, Low Back Pain. 21:39 patient reports 2 weeks of diffuse lower abdominal pain and right flank pain. states sb4 she had one day of a spotting. states LMP was 05/09 but that she is supposed to have another menstrual cycle at the end of the month and is late. is not on control, is sexually active. denies any UTI symptoms, no history of kidney stones. reports nausea but no vomiting, diarrhea, fevers. 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 - Social history:: Smoking status: Reported history of juuling and/or vaping. ROS: 21:39 Constitutional: Negative for fever, chills, and weight loss, sb4 21:39 Abdomen/GI: Positive for nausea, 21:39 Abdomen/GI: Positive for abdominal pain, 21:39 Back: Positive for flank pain, on the right, 21:39 : Positive for menstrual abnormality, 21:39 All other systems are negative, Exam: 21:39 Constitutional: This is a well developed, well nourished patient who is awake, alert, sb4 and in no acute distress. Head/Face: Normocephalic, atraumatic. Eyes: Extra-ocular motions intact. Periorbital areas with no swelling, redness, or edema. ENT: Mucous membranes moist. Cardiovascular: Regular rate and rhythm with a normal S1 and S2. Respiratory: Lungs have equal breath sounds bilaterally, clear to auscultation and percussion. No rales, rhonchi or wheezes noted. No increased work of breathing, no retractions or nasal flaring. Abdomen/GI: Soft, non-tender, no distension. Skin: Warm, dry with normal turgor. Normal color with no rashes, no lesions, and no evidence of cellulitis. MS/ Extremity: Pulses equal, no cyanosis. Neurovascular intact. Full, normal range of motion. Neuro: Awake and alert, GCS 15, oriented to person, place, time, and situation. Motor strength 5/5 in all extremities. Sensory grossly intact. Vital Signs: 21:14 BP 123 / 79; Pulse 86; Resp 18; Temp 98.6; Pulse Ox 100% on R/A; Weight 95.25 kg; cm10 Height 5 ft. 2 in. ; Pain 7/10; 21:14 Body Mass Index 38.41 (95.25 kg, 157.48 cm) cm10 21:14 Pain Scale: Adult cm10 MDM: 21:19 Patient medically screened. sb4 21:39 Differential diagnosis: appendicitis, Dysmenorrhea, Ectopic , non-specific abd sb4 pain, Ureterolithiasis, urinary tract infection. 23:47 ED course: patient eloped prior to me giving results. sb4 23:47 Data reviewed: vital signs, nurses notes, lab test result(s), radiologic studies, and sb4 as a result, I will discharge patient. Test considered but Not performed: Labs: blood work, patient refused after several unsuccessful attempts. 06/03 21:37 Order name: UAM; Complete Time: 22:24 sb4 06/03 21:37 Order name: Test, Urine; Complete Time: 22:35 sb4 06/03 22:52 Order name: CT Abd/Pelvis - Without Contrast; Complete Time: 23:30 sb4 06/03 21:38 Order name: IV Saline Lock sb4 06/03 21:38 Order name: Labs collected and sent sb4 Administered Medications: No medications were administered Disposition Summary: 06/03/23 23:44 Discharge Ordered Notes: Location: Home sb4 Problem: an ongoing problem sb4 Symptoms: are unchanged sb4 Condition: Stable sb4 Diagnosis - Lower abdominal pain, unspecified sb4 Followup: sb4 - With: Emergency Department - When: As needed - Reason: Trouble breathing, Worsening of condition Forms: - Medication Reconciliation Form sb4 - Thank You Letter sb4 - Antibiotic Education sb4 - Prescription Opioid Use sb4 - Patient Portal Instructions sb4 - Leadership Thank You Letter sb4 Signatures: Dispatcher [employer] EDRI Meenakshi Erwin PA-C PA-C sb4 Maddy Love RN RN cm10 Corrections: (The following items were deleted from the chart) 23:02 22:36 Abdomen Pelvis W Con+CT.RAD.BRZ ordered. [facility] EDRI 06/04 00:08 06/03 23:47 Test considered but Not performed: Labs: blood work, patient refused after sb4 several unsuccessful attempts. sb4
--- NOTE | 2023-06-03 23:45 | ER ---
Nurse's Notes [facility] Name: Thanh Camp Age: 23 yrs Sex: Female : 2000 Arrival Date: 06/03/2023 Time: 20:52 Bed 9 Private MD: Diagnosis: Lower abdominal pain, unspecified Presentation: 06/03 21:14 Chief complaint: Patient states: Right flank pain that radiates to RLQ onset 2 weeks cm10 ago. Pt denies any burning with urination. Pt reports nausea. Pt denies fevers, states that her period is 2 weeks late. Coronavirus screen: Vaccine status: Patient reports being unvaccinated. Client denies travel out of the [place] in the last 14 days. Ebola Screen: Patient denies travel to an Ebola-affected area in the 21 days before illness onset. No symptoms or risks identified at this time. Initial Sepsis Screen: Does the patient meet any 2 criteria? No. Patient's initial sepsis screen is negative. Does the patient have a suspected source of infection? No. Patient's initial sepsis screen is negative. Risk Assessment: Do you want to hurt yourself or someone else? Patient reports no desire to harm self or others. Onset of symptoms was June 03, 2023. 21:14 Method Of Arrival: Ambulatory cm10 21:14 Acuity: FLORES 3 cm10 Triage Assessment: 06/04 00:22 General: Appears in no apparent distress. Behavior is calm, cooperative. Pain: tl4 Complains of pain in abdomen. GI: Reports upper abdominal pain, cramping. 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 - Social history:: Smoking status: Reported history of juuling and/or vaping. Screenin/29 00:21 [facility] ED Fall Risk Assessment (Adult) History of falling in the last 3 months, tl4 including since admission No falls in past 3 months (0 pts) Confusion or Disorientation No (0 pts) Intoxicated or Sedated No (0 pts) Impaired Gait No (0 pts) Mobility Assist Device Used No (0 pt) Altered Elimination No (0 pt) Score/Fall Risk Level 0 - 2 = Low Risk. Abuse screen: Denies threats or abuse. Denies injuries from another. Nutritional screening: No deficits noted. Tuberculosis screening: No symptoms or risk factors identified. Assessment: 06/03 22:49 Reassessment: Pt refusing blood draw at this time. Pt states that if a butterfly cm10 kneedle cannot be used then she does not want labs done. 06/04 00:24 GI: Bowel sounds present X 4 quads. tl4 00:25 GI: Abd is soft and non tender. tl4 00:26 Reassessment: Attempt to locate patient unsuccessful. Pt eloped ED without getting her tl4 results. GEORGE Lim aware. Vital Signs: 06/03 21:14 BP 123 / 79; Pulse 86; Resp 18; Temp 98.6; Pulse Ox 100% on R/A; Weight 95.25 kg; cm10 Height 5 ft. 2 in. ; Pain 7/10; 21:14 Body Mass Index 38.41 (95.25 kg, 157.48 cm) cm10 21:14 Pain Scale: Adult cm10 ED Course: 20:55 Patient arrived in ED. gm2 20:57 Meenakshi Erwin PA-C is PHCP. sb4 20:57 Elmo Dooley MD is Attending Physician. sb4 21:16 Triage completed. cm10 21:17 Arm band placed on Patient placed in waiting room. cm10 21:51 Steven Motta is Primary Nurse. tl4 22:13 Test, Urine Sent. tl4 22:13 UAM Sent. tl4 23:20 CT Abd/Pelvis - Without Contrast In Process Unspecified. EDMS 06/04 00:23 No provider procedures requiring assistance completed. Patient did not have IV access tl4 during this emergency room visit. 00:25 Patient has correct armband on for positive identification. Bed in low position. Call tl4 light in reach. Side rails up X2. Adult w/ patient. Provided Education on: ED process. 00:25 Door closed. Lights dimmed. Warm blanket given. Pillow given. tl4 Administered Medications: No medications were administered Medication: 00:22 VIS not applicable for this client. tl4 Outcome: 06/03 23:44 Discharge ordered by MD. [facility] 06/04 00:26 Eloped from patient exam room, after seeing physician tl4 Condition: stable Discharge instructions given to not given, patient eloped 00:27 Patient left the ED. tl4 Signatures: Dispatcher [employer] Meenakshi Han PA-C PA-C sb4 Maddy Love RN RN Jessica Barros 2 Steven Motta tl4
[2023-06-04 06:45] VITALS: BP 123/79; TEMP 98.6; O2SAT 100
== END ==
LOC: ER 20:52
DX: R10.31 Right lower quadrant pain (principal); R11.0 Nausea; M54.50 Low back pain, unspecified
CPT/HCPCS: 74176; 81001; 81025; 99283

== ENCOUNTER → 2023-06-21 | Emergency (ER) | payer OTHER ==
[~2023-06-21] MED LIST: ACETAMINOPHEN 500 MG TAB ONE; ONDANSETRON 4 MG (ODT) TAB ONE
--- OUTSIDE RECORDS SUMMARY | 2023-06-21 21:53 | XMS REPORT | Continuity of Care Document ---
Author Name Unknown Address [address] [facility] [address] [facility] [address] [place] [address] [facility] thconnect Address [address] [place] [address] Care Team Providers Care Jewelry Racker Name Role Phone JAEL HOLLEY Primary Care Physician Unava ilable SHAYY CROUCH Attending Clinician Unavail able Shayy Wei Attending Clinician + Doctor Unassigned, [place] Attending Clinician U vincenzoailGISELLE Gutierrez Attending Clinician Unavailable Giselle Michael MD Attending Clinician [phone] Lauren Ryan MD Attending Clinician + [phone] Maribel BOUDREAUX Attending Clinician Unavailable Maribel Romero Attending Clinician [phone] Gabe GNEmilie Lizama Attending Clinician Unav ailable Choi Carol STEVEN Attending Clinician + [phone] CHOICAROL Attending Clinician Unavailab JOE Smart Attending Clinician Unavailable Joe Acharya NP Attending Clinician [phone] ENDY VU Attending Clinician Unavailable Endy Vu MD Attending Clinician [phone] LAUREN RYAN Attending Clinician Unavaila СЕРГЕЙ Horner Attending Clinician Unavailable BRAD CARVAJAL Attending Clinician Unavailable SHAYY CROUCH Admitting Clinician Unavail able JOE ACHARYA Admitting Clinician Unavailable СЕРГЕЙ AREVALO Admitting Clinician Unavailable Payers Payer Name Policy Type Policy Number Effective Date Expirati on Date Source [facility] [id number] 2020 00:00:00 [facility] [id number] 2021 00:00:00 Problems Condition Name Condition Details Condition Category Status Onset Date Resolution Date Last Treatment Date Treating Clinician Comments Source Abdominal bloating Abdominal bloating Disease Active 07-03 00:00: 00 [facility] Other general counseling and advice for contracept jed management Other general counseling and advice for contracept jed management Disease Active 07-03 00:00: 00 [facility] BMI 37.0-37.9, adult BMI 37.0-37.9, adult Disease Active 2020-06 00:00: 00 [facility] Nausea and vomiting, intractabi lity of vomiting not specified, unspecifie d vomiting type Nausea and vomiting, intractabi lity of vomiting not specified, unspecifie d vomiting type Disease Active 2020-06 00:00: 00 [facility] Screening examinatio n for STD (sexually transmitte d disease) Screening examinatio n for STD (sexually transmitte d disease) Disease Active 01-24 00:00: 00 [facility] Depot contracept ion Depot contracept ion Disease Active 01-24 00:00: 00 [facility] Allergies, Adverse Reactions, Alerts Allergy Name Allergy Type Status Severity Reaction(s) Onset Date Inactive Date Treating Clinician Comments Source NO KNOWN ALLERGIE S Drug Class Active [facility] Social History Social Habit Start Date Stop Date Quantity Comments [facility] Tobacco use and exposure 2023-04-15 00:00:00 2023-04-15 00:00:00 Smokeless tobacco non-user [facility] Alcohol intake 2023-04-15 00:00:00 2023-04-15 00:00:00 Current non-drinker of alcohol (finding) [facility] Exposure to SARS-CoV-2 (event) 2021-12-07 00:00:00 2021-12-17 05:04:00 Yes [facility] History of Social function 2020-11-15 00:00:00 2020-11-15 00:00:00 [facility] Sex Assigned At 2000 00:00:00 2000 00:00:00 [facility] Smoking Status Start Date Stop Date Source Never smoked tobacco [facility] Medications Ordered Medication Name Filled Medication Name Start Date Stop Date Current Medication? Ordering Clinician Indication Dosage Frequency Signature (SIG) Comments Components Source ibuprofen (IBU) tablet 800 mg 12-17 10:15: 00 12-17 10:13 :00 No 800mg 800 mg, Oral, ONCE, 1 dose, On Wed12/17/21 at 0515, HECTOR [facility] ibuprofen 800 mg tablet 12-17 00:00: 00 Yes [id number] 800mg Take 1 tablet by mouth every 8 (eight) hours as needed for Temp > 38.5 C or Pain (scale 4-6). [facility] benzonatate 200 mg capsule 12-17 00:00: 00 Yes [id number] 200mg Take 1 capsule by mouth 3 (three) times daily as needed for Cough. [facility] ondansetron (ZOFRAN) 4 mg tablet 12-17 00:00: 00 Yes [id number] 4mg Take 1 tablet by mouth every 8 (eight) hours as needed for Nausea and Vomiting (N/V). [facility] ibuprofen 800 mg tablet 2-0 7-13 00:00: 00 Yes [id number] 800mg Take 1 tablet by mouth every 8 (eight) hours as needed for Temp > 38.5 C or Pain (scale 4-6). [facility] benzonatate 200 mg capsule 2-0 7-13 00:00: 00 Yes [id number] 200mg Take 1 capsule by mouth 3 (three) times daily as needed for Cough. [facility] ondansetron (ZOFRAN) 4 mg tablet 0 7-13 00:00: 00 Yes [id number] 4mg Take 1 tablet by mouth every 8 (eight) hours as needed for Nausea and Vomiting (N/V). [facility] ibuprofen 800 mg tablet 2021-0 7-13 00:00: 00 04-15 00:00 :00 No [id number] 800mg Take 1 tablet by mouth every 8 (eight) hours as needed for Temp > 38.5 C or Pain (scale 4-6). [facility] benzonatate 200 mg capsule 2021-0 7-13 00:00: 00 04-15 00:00 :00 No [id number] 200mg Take 1 capsule by mouth 3 (three) times daily as needed for Cough. [facility] ondansetron (ZOFRAN) 4 mg tablet 0 7-13 00:00: 00 04-15 00:00 :00 No [id number] 4mg Take 1 tablet by mouth every 8 (eight) hours as needed for Nausea and Vomiting (N/V). [facility] ibuprofen 800 mg tablet 2021-0 7-13 00:00: 00 04-15 00:00 :00 No [id number] 800mg Take 1 tablet by mouth every 8 (eight) hours as needed for Temp > 38.5 C or Pain (scale 4-6). [facility] benzonatate 200 mg capsule 2021-0 7-13 00:00: 00 04-15 00:00 :00 No [id number] 200mg Take 1 capsule by mouth 3 (three) times daily as needed for Cough. [facility] ondansetron (ZOFRAN) 4 mg tablet -13 00:00: 00 04-15 00:00 :00 No [id number] 4mg Take 1 tablet by mouth every 8 (eight) hours as needed for Nausea and Vomiting (N/V). [facility] ibuprofen 800 mg tablet 12-17 00:00: 00 04-15 00:00 :00 No [id number] 800mg Take 1 tablet by mouth every 8 (eight) hours as needed for Temp > 38.5 C or Pain (scale 4-6). [facility] benzonatate 200 mg capsule 12-17 00:00: 00 04-15 00:00 :00 No [id number] 200mg Take 1 capsule by mouth 3 (three) times daily as needed for Cough. [facility] ondansetron (ZOFRAN) 4 mg tablet 12-17 00:00: 00 04-15 00:00 :00 No [id number] 4mg Take 1 tablet by mouth every 8 (eight) hours as needed for Nausea and Vomiting (N/V). [facility] dicyclomine (BENTYL) capsule 20 mg 07-30 06:00: 00 07-30 05:05 :00 No 20mg 20 mg, Oral, ONCE, 1 dose, On Wed07/30/21 at 0000, Routine [facility] dicyclomine 20 mg tablet - 00:00: 00 Yes [id number] 20mg Take 1 tablet by mouth 4 (four) times daily. [facility] dicyclomine 20 mg tablet - 00:00: 00 Yes [id number] 20mg Take 1 tablet by mouth 4 (four) times daily. [facility] dicyclomine 20 mg tablet 0 - 00:00: 00 Yes [id number] 20mg Take 1 tablet by mouth 4 (four) times daily. [facility] dicyclomine 20 mg tablet - 00:00: 00 Yes [id number] 20mg Take 1 tablet by mouth 4 (four) times daily. [facility] dicyclomine 20 mg tablet 2-22 00:00: 00 04-15 00:00 :00 No [id number] 20mg Take 1 tablet by mouth 4 (four) times daily. [facility] dicyclomine 20 mg tablet 2-22 00:00: 00 04-15 00:00 :00 No [id number] 20mg Take 1 tablet by mouth 4 (four) times daily. [facility] dicyclomine 20 mg tablet 2 00:00: 00 04-15 00:00 :00 No [id number] 20mg Take 1 tablet by mouth 4 (four) times daily. [facility] risperiDONE 4 mg tablet 2020-06 09:15: 53 06-03 00:00 :00 No 4mg Take 4 mg by mouth at bedtime. [facility] risperiDONE 4 mg tablet 2020-06 09:15: 53 06-03 00:00 :00 No 4mg Take 4 mg by mouth at bedtime. [facility] albuterol 90 mcg/actuati on inhaler 11-16 00:00: 00 Yes [id number] 2{puff} Inhale 2 Puffs every 4 (four) hours as needed for Wheezing or Shortness of Breath. [facility] albuterol 90 mcg/actuati on inhaler 11-16 00:00: 00 Yes [id number] 2{puff} Inhale 2 Puffs every 4 (four) hours as needed for Wheezing or Shortness of Breath. [facility] albuterol 90 mcg/actuati on inhaler 11-16 00:00: 00 Yes [id number] 2{puff} Inhale 2 Puffs every 4 (four) hours as needed for Wheezing or Shortness of Breath. [facility] albuterol 90 mcg/actuati on inhaler 11-16 00:00: 00 Yes [id number] 2{puff} Inhale 2 Puffs every 4 (four) hours as needed for Wheezing or Shortness of Breath. [facility] albuterol 90 mcg/actuati on inhaler 11-16 00:00: 00 Yes [id number] 2{puff} Inhale 2 Puffs every 4 (four) hours as needed for Wheezing or Shortness of Breath. [facility] albuterol 90 mcg/actuati on inhaler 11-16 00:00: 00 Yes [id number] 2{puff} Inhale 2 Puffs every 4 (four) hours as needed for Wheezing or Shortness of Breath. [facility] albuterol 90 mcg/actuati on inhaler 11-16 00:00: 00 Yes [id number] 2{puff} Inhale 2 Puffs every 4 (four) hours as needed for Wheezing or Shortness of Breath. [facility] albuterol 90 mcg/actuati on inhaler 11-16 00:00: 00 Yes [id number] 2{puff} Inhale 2 Puffs every 4 (four) hours as needed for Wheezing or Shortness of Breath. [facility] albuterol 90 mcg/actuati on inhaler 11-16 00:00: 00 Yes [id number] 2{puff} Inhale 2 Puffs every 4 (four) hours as needed for Wheezing or Shortness of Breath. [facility] albuterol 90 mcg/actuati on inhaler 11-16 00:00: 00 04-15 00:00 :00 No [id number] 2{puff} Inhale 2 Puffs every 4 (four) hours as needed for Wheezing or Shortness of Breath. [facility] albuterol 90 mcg/actuati on inhaler 11-16 00:00: 00 04-15 00:00 :00 No [id number] 2{puff} Inhale 2 Puffs every 4 (four) hours as needed for Wheezing or Shortness of Breath. [facility] albuterol 90 mcg/actuati on inhaler 11-16 00:00: 00 04-15 00:00 :00 No [id number] 2{puff} Inhale 2 Puffs every 4 (four) hours as needed for Wheezing or Shortness of Breath. [facility] medroxy[facility] ESTERone (DEPO-PROVE RA) injection 150 mg 8-20 15:00: 10-03 13:19 :00 No [id number] 150mg Univer s it[facility] medroxyPROG ESTERone (DEPO-PROVE RA) injection 150 mg 820 15:00: 10-03 13:19 :00 No [id number] 150mg Univer s [facility] promethazin e-codeine 6.25-10 mg/5 mL syrup 08-12 00:00: 00 08-12 00:00 :00 No 5mL Take 5 mL by mouth 4 (four) times daily as needed for Cough. [facility] sod chlor-bicar b-squeez bottle (NEILMED SINUS RINSE COMPLETE) [facility] 08-12 00:00: 08-12 00:00 :00 No 1{bottl e} Use 1 Bottle in each nostril 2 (two) times daily. Use in hot shower 1 hour before bedtime [facility] promethazin e-codeine 6.25-10 mg/5 mL syrup 08-12 00:00: 00 08-12 00:00 :00 No 5mL Take 5 mL by mouth 4 (four) times daily as needed for Cough. [facility] sod chlor-bicar b-squeez bottle (NEILMED SINUS RINSE COMPLETE) pkd 08-12 00:00: 00 08-12 00:00 :00 No 1{bottl e} Use 1 Bottle in each nostril 2 (two) times daily. Use in hot shower 1 hour before bedtime [facility] fluocinolon e 0.01 % body oil 09-11 00:00: 00 Yes [facility] it[facility] fluocinolon e 0.01 % body oil 09-11 00:00: 00 Yes [facility] fluocinolon e 0.01 % body oil 09-11 00:00: 00 Yes [facility] fluocinolon e 0.01 % body oil 09-11 00:00: 00 Yes [facility] fluocinolon e 0.01 % body oil 09-11 00:00: 00 Yes [facility] fluocinolon e 0.01 % body oil 09-11 00:00: 00 Yes [facility] fluocinolon e 0.01 % body oil 09-11 00:00: 00 Yes [facility] fluocinolon e 0.01 % body oil 09-11 00:00: 00 Yes [facility] fluocinolon e 0.01 % body oil 09-11 00:00: 00 Yes [facility] fluocinolon e 0.01 % body oil 09-11 00:00: 00 Yes [facility] fluocinolon e 0.01 % body oil 09-11 00:00: 00 Yes [facility] fluocinolon e 0.01 % body oil 09-11 00:00: 00 Yes [facility] fluocinolon e 0.01 % body oil 09-11 00:00: 00 Yes [facility] fluocinolon e 0.01 % body oil 09-11 00:00: 00 Yes [facility] fluocinolon e 0.01 % body oil 09-11 00:00: 00 04-15 00:00 :00 No [facility] fluocinolon e 0.01 % body oil 09-11 00:00: 00 04-15 00:00 :00 No [facility] fluocinolon e 0.01 % body oil 09-11 00:00: 00 04-15 00:00 :00 No [facility] fluticasone 50 mcg/actuati on nasal spray 09-09 00:00: 00 Yes [facility] mometasone 0.1 % ointment 09-09 00:00: 00 Yes [facility] fluticasone 50 mcg/actuati on nasal spray 0 09-09 00:00: 00 Yes [facility] mometasone 0.1 % ointment 09-09 00:00: 00 Yes [facility] fluticasone 50 mcg/actuati on nasal spray 0 09-09 00:00: 00 Yes [facility] mometasone 0.1 % ointment 09-09 00:00: 00 Yes [facility] fluticasone 50 mcg/actuati on nasal spray 09-09 00:00: 00 Yes [facility] mometasone 0.1 % ointment 09-09 00:00: 00 Yes [facility] fluticasone 50 mcg/actuati on nasal spray 09-09 00:00: 00 Yes [facility] mometasone 0.1 % ointment 09-09 00:00: 00 Yes [facility] fluticasone 50 mcg/actuati on nasal spray 09-09 00:00: 00 Yes [facility] mometasone 0.1 % ointment 09-09 00:00: 00 Yes [facility] fluticasone 50 mcg/actuati on nasal spray 09-09 00:00: 00 Yes [facility] mometasone 0.1 % ointment 09-09 00:00: 00 Yes [facility] fluticasone 50 mcg/actuati on nasal spray 0 09-09 00:00: 00 Yes [facility] mometasone 0.1 % ointment 0 09-09 00:00: 00 Yes [facility] fluticasone 50 mcg/actuati on nasal spray 0 09-09 00:00: 00 Yes [facility] mometasone 0.1 % ointment 09-09 00:00: 00 Yes [facility] fluticasone 50 mcg/actuati on nasal spray 09-09 00:00: 00 Yes [facility] mometasone 0.1 % ointment 09-09 00:00: 00 Yes [facility] fluticasone 50 mcg/actuati on nasal spray 09-09 00:00: 00 Yes [facility] mometasone 0.1 % ointment 09-09 00:00: 00 Yes [facility] fluticasone 50 mcg/actuati on nasal spray 09-09 00:00: 00 Yes [facility] mometasone 0.1 % ointment 09-09 00:00: 00 Yes [facility] fluticasone 50 mcg/actuati on nasal spray 09-09 00:00: 00 Yes [facility] mometasone 0.1 % ointment 09-09 00:00: 00 Yes [facility] fluticasone 50 mcg/actuati on nasal spray 09-09 00:00: 00 Yes [facility] mometasone 0.1 % ointment 09-09 00:00: 00 Yes [facility] fluticasone 50 mcg/actuati on nasal spray 09-09 00:00: 00 04-15 00:00 :00 No [facility] mometasone 0.1 % ointment 09-09 00:00: 00 04-15 00:00 :00 No [facility] fluticasone 50 mcg/actuati on nasal spray 09-09 00:00: 00 04-15 00:00 :00 No [facility] mometasone 0.1 % ointment 09-09 00:00: 00 04-15 00:00 :00 No [facility] fluticasone 50 mcg/actuati on nasal spray 09-09 00:00: 00 04-15 00:00 :00 No [facility] mometasone 0.1 % ointment 09-09 00:00: 00 04-15 00:00 :00 No [facility] naproxen (NAPROSYN) 500 mg tablet 01-13 00:00: 00 08-12 00:00 :00 No 500mg Take 1 Tab by mouth 2 (two) times daily with meals. [facility] acetaminoph en-codeine (TYLENOL #2) 300-15 mg tablet 01-13 00:00: 00 08-12 00:00 :00 No 1{tbl} Take 1 Tab by mouth every 6 (six) hours as needed for Pain. [facility] naproxen (NAPROSYN) 500 mg tablet 01-13 00:00: 00 08-12 00:00 :00 No 500mg Take 1 Tab by mouth 2 (two) times daily with meals. [facility] acetaminoph en-codeine (TYLENOL #2) 300-15 mg tablet 01-13 00:00: 00 08-12 00:00 :00 No 1{tbl} Take 1 Tab by mouth every 6 (six) hours as needed for Pain. [facility] Immunizations Ordered Immunization Name Filled Immunization Name Date Status Comments Source HPV9 Unknown Completed [facility] HPV9 Unknown Completed [facility] HPV9 Unknown Completed [facility] Vital Signs Vital Name Observation Time Observation Value Comments S annemarievern Systolic blood pressure 2023-04-15 20:23:00 119 mm[Hg] [facility] Diastolic blood pressure 2023-04-15 20:23:00 79 mm[Hg] [facility] Heart rate 2023-04-15 20:23:00 79 /min [facility] Body temperature 2023-04-15 20:23:00 36.44 Tory [facility] Respiratory rate 2023-04-15 20:23:00 18 /min [facility] Body height 2023-04-15 20:23:00 157.5 cm [facility] weight 2023-04-15 20:23:00 93.804 kg Univ [facility] BMI 2023-04-15 20:23:00 37.82 kg/m2 Univ [facility] Body temperature 2021-12-17 11:11:00 38.11 Tory [facility] Systolic blood pressure 2021-12-17 10:06:00 112 mm[Hg] [facility] Diastolic blood pressure 2021-12-17 10:06:00 73 mm[Hg] [facility] Heart rate 2021-12-17 10:06:00 100 /min [facility] Respiratory rate 2021-12-17 10:06:00 18 /min [facility] Body height 2021-12-17 10:06:00 157.5 cm Univ [facility] Body weight 2021-12-17 10:06:00 86.183 kg [facility] BMI 2021-12-17 10:06:00 34.75 kg/m2 [facility] Oxygen saturation in Arterial blood by Pulse oximetry 2021-12-17 10:06:00 100 /min [facility] Systolic blood pressure 2021-07-30 03:20:00 133 mm[Hg] [facility] Diastolic blood pressure 2021-07-30 03:20:00 68 mm[Hg] [facility] Heart rate 2021-07-30 03:20:00 85 /min [facility] Body temperature 2021-07-30 03:20:00 37.22 Tory [facility] Respiratory rate 2021-07-30 03:20:00 18 /min [facility] Body height 2021-07-30 03:20:00 157.5 cm Univ [facility] Body weight 2021-07-30 03:20:00 87.091 kg Univ [facility] BMI 2021-07-30 03:20:00 35.12 kg/m2 Univ [facility] Oxygen saturation in Arterial blood by Pulse oximetry 2021-07-30 03:20:00 100 /min [facility] Procedures Procedure Date / Time Performed Performing Clinicia n Source GARDASIL 9 (HPV 9V) VACCINE 2023-04-15 20:32:05 Shayy Crouch [facility] CONSENT/REFUSAL FOR DIAGNOSIS AND TREATMENT 2023-04-15 20:10:29 Doctor Unassigned, [place] [facility] RAPID INFLUENZA A/B 2021-12-17 10:12:00 Giselle Michael [facility] COVID-19 (ID NOW RAPID TESTING) 2021-12-17 10:12:00 Giselle Michael [facility] CONSENT/REFUSAL FOR DIAGNOSIS AND TREATMENT 2021-12-17 09:57:24 Doctor Unassigned, [place] [facility] POCT TEST 2021-07-30 03:24:00 Giselle Michael [facility] URINALYSIS 2021-07-30 03:23:00 Giselle Michael [facility] CONSENT/REFUSAL FOR DIAGNOSIS AND TREATMENT 2021-07-30 03:07:06 Doctor Unassigned, [place] [facility] Encounters Start Date/Time End Date/Time Encounter Type Admission Type Attending [facility] Care Facility Care Department Encounter ID Source 2021-04-07 13:54:48 Emergency [facility] [id number] [facility] 2021-04-07 02:40:27 Emergency [facility] [id number] [facility] 2021-04-07 00:50:22 Emergency [facility] [id number] [facility] 2021-04-06 04:02:40 Emergency [facility] [id number] [facility] 2021-04-05 18:49:56 Emergency [facility] [id number] [facility] 2021-04-05 17:13:06 Emergency [facility] [id number] [facility] 2021-04-05 01:27:27 Emergency [facility] [id number] [facility] 2023-10-21 14:30:00 2023-10-21 14:30:00 Outpatient R [facility] [id number] [facility] 2023-05-20 14:30:00 2023-05-20 14:30:00 Outpatient R [facility] [id number] [facility] 2023-04-21 15:00:00 2023-04-21 15:00:00 Outpatient R [facility] [id number] [facility] 2023-04-16 14:00:00 2023-04-16 14:00:00 Outpatient R [facility] [id number] [facility] 2023-04-15 14:15:00 2023-04-15 14:58:19 Outpatient R SHAYY CROUCH [facility] [id number] [facility] 2023-04-15 14:15:00 2023-04-15 14:58:19 Office Visit Shayy Crouch [facility] COAGULATING OPERATOR [facility] 1..[id number] [id number] [facility] 2023-04-15 00:00:00 2023-04-15 00:00:00 Orders Only Doctor Unassigned, [place] [facility] 1..840.114 [id number] [facility] 2021-12-17 05:07:00 2021-12-17 06:44:00 Emergency X GISELLE MICHAEL [facility] ERT [id number] [facility] 2021-12-17 05:07:00 2021-12-17 06:44:00 Emergency Giselle Michael [facility] [id number] [facility] 2021-09-07 00:00:00 2021-09-07 00:00:00 Telephone Lauren Ryan [facility] [id number] 4.2.7.2.686 [id number] [facility] 2021-07-29 21:38:00 2021-07-29 23:12:00 Emergency X Maribel BOUDREAUX [facility] ERT [id number] [facility] 2021-07-29 21:38:00 2021-07-29 23:12:00 Emergency Maribel Boudreaux Kenzie [facility] 1.2840.114 350.1.13.10 4.2.7.2.686 [id number] [facility] 2021-07-18 00:00:00 2021-07-18 00:00:00 Telephone Emilie Bernal [facility] 1.840.114 350.1.13.10 4.2.7.2.686 [id number] [facility] 2021-07-17 16:13:22 2021-07-17 23:59:00 Outpatient R SHAYY CROUCH [facility] [id number] [facility] 2021-07-17 16:13:22 2021-07-17 23:59:00 Hospital Encounter Shayy Crouch [facility] 1.2840.114 350.1.13.10 4.2.7.2.686 [id number] [facility] 2021-07-17 16:13:22 2021-07-17 23:59:00 Outpatient R SHAYY CROUCH [facility] [id number] [facility] 2021-07-17 00:00:00 2021-07-17 00:00:00 Orders Only Doctor Unassigned, [place] [facility] 1.2840.114 350.1.13.10 4.2.7.2.686 [id number] [facility] 2021-07-05 00:00:00 2021-07-05 00:00:00 Patient Secure Msg Shayy Crouch [facility] COAGULATING OPERATOR [facility] 1.2.840.114 350.1.13.10 4.2.7.2.686 [id number] [facility] 2021-07-03 16:00:00 2021-07-03 16:41:07 Outpatient R SHAYY CROUCH [facility] [id number] [facility] 2021-07-03 16:00:00 2021-07-03 16:41:07 Office Visit Shayy Crouch [facility] COAGULATING OPERATOR [facility] 1.2.840.114 350.1.13.10 4.2.7.2.686 [id number] [facility] 2021-06-17 00:00:00 2021-06-17 00:00:00 Patient Secure Msg Shayy Crouch [facility] COAGULATING OPERATOR [facility] 1.2.840.114 350.1.13.10 4.2.7.2.686 [id number] [facility] 2021-06-17 00:00:00 2021-06-17 00:00:00 Patient Secure Msg Shayy Crouch [facility] COAGULATING OPERATOR [facility] 1.2.840.114 350.1.13.10 4.2.7.2.686 [id number] [facility] 2021-06-05 00:00:00 2021-06-05 00:00:00 Patient Secure Msg Shayy Crouch [facility] COAGULATING OPERATOR [facility] 1.2.840.114 350.1.13.10 4.2.7.2.686 [id number] [facility] 2021-06-03 08:30:00 2021-06-03 10:31:02 Office Visit Carol Choi [facility] COAGULATING OPERATOR [facility] 1.84.114 350.1.13.10 4.2.7.2.686 [id number] [facility] 2021-06-03 08:30:00 2021-06-03 10:31:02 Outpatient R EMILY CHOIJAMISONSHUNCristino [facility] [id number] [facility] 2021-06-03 08:30:00 2021-06-03 08:30:00 Outpatient EMILY BRADLEYJAMISONSHUNCristino [facility] [id number] [facility] 2021-06-03 08:30:00 2021-06-03 08:30:00 Outpatient EMILY BRADLEYEVERETT [facility] [id number] [facility] 2021-06-03 00:00:00 2021-06-03 00:00:00 Orders Only Doctor Unassigned, [place] [facility] 1.840.114 350.1.13.10 4.2.7.2.686 [id number] [facility] 2021-04-06 16:27:00 2021-04-06 20:45:00 Emergency X JOE ACHARYA [facility] ERT [id number] [facility] 2021-04-06 16:27:00 2021-04-06 20:45:00 Emergency Joe Acharya [facility] 1.840.114 350.1.13.10 4.2.7.2.686 [id number] [facility] 2021-04-05 15:58:00 2021-04-05 17:53:00 Emergency X ENDY VU [facility] ERT [id number] [facility] 2021-04-05 15:58:00 2021-04-05 17:53:00 Emergency Endy Vu [facility] 1.84.114 350.1.13.10 4.2.7.2.686 [id number] [facility] 2021-04-05 00:00:00 2021-04-05 00:00:00 Orders Only Doctor Unassigned, [place] [facility] 1.840.114 350.1.13.10 4.2.7.2.686 [id number] [facility] 2020-12-26 08:00:00 2020-12-26 08:00:00 Outpatient R [facility] [id number] [facility] 2020-12-25 10:00:00 2020-12-25 10:00:00 Outpatient R [facility] [id number] [facility] 2020-11-15 18:20:00 2020-11-15 18:20:00 Outpatient R [facility] [id number] [facility] 2020-10-18 09:30:00 2020-10-18 09:30:00 Outpatient R LAUREN RYAN [facility] [id number] [facility] 2020-10-03 08:00:00 2020-10-03 08:00:00 Outpatient R [facility] [id number] [facility] 2020-10-01 14:00:00 2020-10-01 14:00:00 Outpatient R LAUREN RYAN [facility] [id number] [facility] 2020-09-06 15:30:00 2020-09-06 15:30:00 Outpatient R LAUREN RYAN [facility] [id number] [facility] 2020-08-12 10:40:00 2020-08-12 12:36:00 Emergency X СЕРГЕЙ AREVALO [facility] ERT [id number] [facility] 2020-08-05 00:00:00 2020-08-05 00:00:00 Patient Secure Msg Doctor Unassigned, [place] [facility] COAGULATING OPERATOR [facility] 1.2.840.114 350.1.13.10 4.2.7.2.686 [id number] [facility] 2020-07-11 08:30:00 2020-07-11 08:30:00 Outpatient R SHAYY CROUCH [facility] [id number] [facility] 2020-06-27 00:00:00 2020-06-27 00:00:00 Patient Secure Msg Doctor Unassigned, [place] [facility] COAGULATING OPERATOR [facility] 1.2.840.114 350.1.13.10 4.2.7.2.686 [id number] [facility] 2020-06-26 00:00:00 2020-06-26 00:00:00 Patient Secure Msg Doctor Unassigned, [place] [facility] COAGULATING OPERATOR [facility] 1.2.840.114 350.1.13.10 4.2.7.2.686 [id number] [facility] 2020-06-11 00:00:00 2020-06-11 00:00:00 Patient Secure Msg Doctor Unassigned, [place] [facility] COAGULATING OPERATOR [facility] 1.2.840.114 350.1.13.10 4.2.7.2.686 [id number] [facility] 2020-06-04 00:00:00 2020-06-04 00:00:00 Patient Secure Msg Doctor Unassigned, [place] [facility] COAGULATING OPERATOR [facility] 1.2.840.114 350.1.13.10 4.2.7.2.686 [id number] [facility] 2020-04-18 08:00:00 2020-04-18 08:00:00 Outpatient R [facility] [id number] [facility] 2020-04-02 15:30:00 2020-04-02 15:30:00 Outpatient R BRAD CARVAJAL [facility] [id number] [facility] 2020-01-25 09:00:00 2020-01-25 09:00:00 Outpatient R [facility] [id number] [facility] Results Test Description Test Time Test Comments Results Result Co mments Source [facility]
--- NOTE | 2023-06-22 00:09 | ER ---
Nurse's Notes [facility] Name: Thanh Camp Age: 23 yrs Sex: Female : 2000 Arrival Date: 06/21/2023 Time: 21:50 Bed 14 Private MD: Diagnosis: SARS-associated coronavirus as the cause of diseases classified elsewhere Presentation: 06/21 22:06 Chief complaint: Patient states: nausea, headache, body aches, chills, sore throat. as6 Coronavirus screen: At this time, the client does not indicate any symptoms associated with coronavirus-19. Ebola Screen: No symptoms or risks identified at this time. Initial Sepsis Screen: Does the patient meet any 2 criteria? No. Patient's initial sepsis screen is negative. Does the patient have a suspected source of infection? No. Patient's initial sepsis screen is negative. Risk Assessment: Do you want to hurt yourself or someone else? Patient reports no desire to harm self or others. Onset of symptoms was June 19, 2023. 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 - Social history:: Smoking status: Reported history of juuling and/or vaping. Screenin:00 [facility] ED Fall Risk Assessment (Adult) History of falling in the last 3 months, km8 including since admission No falls in past 3 months (0 pts) Confusion or Disorientation No (0 pts) Intoxicated or Sedated No (0 pts) Impaired Gait No (0 pts) Mobility Assist Device Used No (0 pt) Altered Elimination No (0 pt) Score/Fall Risk Level 0 - 2 = Low Risk Oriented to surroundings, Maintained a safe environment, Educated pt \T\ family on fall prevention, incl call for assistance when getting out of bed, Assessed \T\ reinforced patient's understanding of fall precautions. Abuse screen: Denies threats or abuse. Denies injuries from another. Nutritional screening: No deficits noted. Tuberculosis screening: No symptoms or risk factors identified. Assessment: 23:00 General: Appears in no apparent distress. comfortable, Behavior is calm, cooperative, km8 appropriate for age. Pain: Complains of pain in head and generalized body Pain currently is 5 out of 10 on a pain scale. Quality of pain is described as aching. Neuro: Level of Consciousness is awake, alert, obeys commands, Oriented to person, place, time, situation, Reports headache. Cardiovascular: Capillary refill < 3 seconds Patient's skin is warm and dry. Respiratory: Airway is patent Respiratory effort is even, unlabored, Respiratory pattern is regular, symmetrical. GI: No signs and/or symptoms were reported involving the gastrointestinal system. : No signs and/or symptoms were reported regarding the genitourinary system. EENT: Reports sore throat. Derm: No signs and/or symptoms reported regarding the dermatologic system. Skin is intact, is healthy with good turgor, Skin is dry, Skin is pink, warm \T\ dry. normal, Skin temperature is warm. Musculoskeletal: Circulation, motion, and sensation intact. Range of motion: intact in all extremities. 06/22 00:00 Reassessment: Patient appears in no apparent distress at this time. No changes from km8 previously documented assessment. Patient and/or family updated on plan of care and expected duration. Pain level reassessed. Patient is alert, oriented x 3, equal unlabored respirations, skin warm/dry/pink. Vital Signs: 06/21 22:06 BP 117 / 70; Pulse 98; Resp 18 S; Temp 100.3(O); Pulse Ox 100% on R/A; Weight 81.65 kg as6 (R); Height 5 ft. 2 in. (R); Pain 7/10; 23:00 BP 100 / 54; Pulse 80; Resp 16; Pulse Ox 100% on R/A; km8 22:06 Body Mass Index 32.92 (81.65 kg, 157.48 cm) as6 22:06 Pain Scale: Adult as6 Gisel Coma Score: 23:00 Eye Response: spontaneous(4). Motor Response: obeys commands(6). Verbal Response: km8 oriented(5). Total: 15. ED Course: 21:54 Patient arrived in ED. ag3 21:55 Page, Elmo, PA is PHCP. cp 21:55 Daniel Main MD is Attending Physician. cp 22:06 Arm band placed on. as6 22:08 Triage completed. as6 23:00 Patient has correct armband on for positive identification. Bed in low position. Call km8 light in reach. Side rails up X2. Pulse ox on. NIBP on. Warm blanket given. 23:00 Strep Sent. ha1 23:00 Influenza Screen (a \T\ B) Sent. ha 23:00 COVID-19 SARS RT PCR Sent. ha1 23:00 No provider procedures requiring assistance completed. Patient maintains SpO2 km8 saturation greater than 95% on room air. 23:14 Nieves Del Real, RN is Primary Nurse. km8 06/22 00:20 Provided Education on: d/c teaching. km8 00:32 Patient did not have IV access during this emergency room visit. km8 Administered Medications: 06/21 23:00 Drug: Ondansetron PO 4 mg PO once Route: PO; 06/22 00:30 Follow up: Response: No adverse reaction 8 06/21 23:00 Drug: Acetaminophen PO 1000 mg PO once Route: PO; 06/22 00:30 Follow up: Response: No adverse reaction Medication: 06/21 23:00 VIS not applicable for this client. km8 Outcome: 06/22 00:09 Discharge ordered by . cp 00:20 Discharged to home ambulatory, km8 00:20 Condition: good km8 00:20 Discharge instructions given to patient, Instructed on discharge instructions, follow up and referral plans. Demonstrated understanding of instructions, follow-up care, medications, Prescriptions given X 4, 00:32 Patient left the ED. km8 Signatures: Elmo Alan PA PA cp Gomez, Alice ag3 Maurilio Garcia RN RN as6 Leyla Gonzalez, RN RN ha1 Nieves Del Real, ÁLVARO RN km8 Corrections: (The following items were deleted from the chart) 06/21 23:49 23:00 Neuro: Level of Consciousness is awake, alert, obeys commands, Oriented to km8 person, place, time, situation, km8 23:50 23:00 EENT: No signs and/or symptoms were reported regarding the EENT system. km8 km8 23:50 23:00 Pain: Pain Quality of pain is described as sal km8 km8
--- NOTE | 2023-06-22 00:10 | EDPHYS ---
Physician Documentation [facility] Name: Thanh Camp Age: 23 yrs Sex: Female : 2000 Arrival Date: 06/21/2023 Time: 21:50 Bed 14 Private MD: ED Physician Daniel Main HPI: 06/21 22:20 This 23 yrs old Black Female presents to ER via Ambulatory with complaints of Flu cp Symptoms. 22:20 The patient or guardian reports cough, that is intermittent. cp 22:20 Onset: The symptoms/episode began/occurred 3 day(s) ago. Associated signs and symptoms: cp Pertinent positives: fever, nausea, sore throat, vomiting, headache and body aches, Pertinent negatives: chest pain, active vomiting, abdominal pain. Severity of symptoms: in the emergency department the symptoms are unchanged despite home interventions. 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 - Social history:: Smoking status: Reported history of juuling and/or vaping. ROS: 22:25 Constitutional: Positive for body aches, fever, Negative for poor PO intake, cp 22:25 Respiratory: Positive for cough, Negative for shortness of breath, wheezing, cp 22:25 Abdomen/GI: Positive for nausea and vomiting, Negative for abdominal pain, diarrhea, constipation, 22:25 Eyes: Negative for injury, pain, redness, and discharge, cp 22:25 ENT: Positive for sore throat, Negative for drainage from ear(s), ear pain, difficulty swallowing, difficulty handling secretions, 22:25 Cardiovascular: Negative for chest pain, 22:25 : Negative for urinary symptoms, 22:25 Neuro: Positive for headache, Negative for altered mental status, weakness, 22:25 All other systems are negative, Exam: 22:30 Constitutional: The patient appears in no acute distress, alert, awake, non-toxic, well cp developed, well nourished, obese, 22:30 Head/Face: Normocephalic, atraumatic. cp 22:30 Eyes: Periorbital structures: appear normal, Conjunctiva: normal, no exudate, no injection, Lids and lashes: appear normal, bilaterally, 22:30 ENT: External ear(s): are unremarkable, Ear canal(s): are normal, clear, TM's: dullness, bilaterally, Nose: is normal, Mouth: Lips: moist, Oral mucosa: moist, Posterior pharynx: Airway: no evidence of obstruction, patent, Tonsils: with erythema, no enlargement, no exudate, swelling, is not appreciated, erythema, that is mild, exudate, is not appreciated, 22:30 Neck: ROM/movement: is normal, is supple, without pain, no range of motions limitations, no meningismus, 22:30 Chest/axilla: Inspection: normal, 22:30 Cardiovascular: Rate: normal, Rhythm: regular, 22:30 Respiratory: the patient does not display signs of respiratory distress, Respirations: normal, no use of accessory muscles, no pursed lip breathing, Breath sounds: decreased breath sounds, are not appreciated, stridor, is not appreciated, + upper airway congestion. wheezing: is not appreciated, 22:30 Abdomen/GI: Exam negative for discomfort, distension, guarding, Inspection: abdomen appears normal, 22:30 Neuro: Orientation: no acute changes, Mentation: is normal, Vital Signs: 22:06 BP 117 / 70; Pulse 98; Resp 18 S; Temp 100.3(O); Pulse Ox 100% on R/A; Weight 81.65 kg as6 (R); Height 5 ft. 2 in. (R); Pain 7/10; 23:00 BP 100 / 54; Pulse 80; Resp 16; Pulse Ox 100% on R/A; km8 22:06 Body Mass Index 32.92 (81.65 kg, 157.48 cm) as6 22:06 Pain Scale: Adult as6 Keatchie Coma Score: 23:00 Eye Response: spontaneous(4). Motor Response: obeys commands(6). Verbal Response: km8 oriented(5). Total: 15. MDM: 21:59 Patient medically screened. cp 23:00 Differential diagnosis: bronchitis, flu, URI, strep throat, COVID-19. cp 06/22 00:08 Data reviewed: vital signs, nurses notes, lab test result(s). 00:08 I considered the following discharge prescriptions or medication management in the emergency department Medications were administered in the Emergency Department. See MAR. Counseling: I had a detailed discussion with the patient and/or guardian regarding the historical points, exam findings, and any diagnostic results supporting the discharge/admit diagnosis, lab results, to return to the emergency department if symptoms worsen or persist or if there are any questions or concerns that arise at home. Response to treatment: the patient's symptoms have markedly improved after treatment, and as a result, I will discharge patient. 06/21 22:11 Order name: COVID-19 SARS RT PCR; Complete Time: 00:07 06/22 00:07 Interpretation: Reviewed. 06/21 22:11 Order name: Influenza Screen (a \T\ B); Complete Time: 00:02 06/22 00:02 Interpretation: Reviewed. 06/21 22:11 Order name: Strep; Complete Time: 00:02 06/22 00:02 Interpretation: Reviewed. 06/21 23:56 Order name: Throat Culture EDMS Administered Medications: 06/21 23:00 Drug: Ondansetron PO 4 mg PO once Route: PO; [facility] 06/22 00:30 Follow up: Response: No adverse reaction [facility] 06/21 23:00 Drug: Acetaminophen PO 1000 mg PO once Route: PO; [facility] 06/22 00:30 Follow up: Response: No adverse reaction [facility] Disposition Summary: 06/22/23 00:09 Discharge Ordered Notes: Location: Home cp Problem: new cp Symptoms: have improved cp Condition: Stable cp Diagnosis - SARS-associated coronavirus as the cause of diseases classified elsewhere cp Followup: cp - With: Private Physician - When: 2 - 3 days - Reason: Worsening of condition Discharge Instructions: - Discharge Summary Sheet cp - Form - Excuse from Work, School, or Physical Activity cp - COVID-19 cp - How to Protect Yourself and Others - [facility] (08/01/2021) cp - 10 Things You Can Do to Manage Your COVID-19 Symptoms at Home - [facility] (12/20/2020) cp - COVID-19: Quarantine and Isolation - [facility] (09/03/2021) cp - COVID-19: What to Do If You Are Sick - [facility] (08/26/2021) cp Forms: - Medication Reconciliation Form cp - Thank You Letter cp - Antibiotic Education cp - Prescription Opioid Use cp - Patient Portal Instructions cp - Leadership Thank You Letter cp Prescriptions: - Bromfed DM 2-30-10 mg/5 mL Oral syrup - administer 10 milliliter ORAL route every 6 hours as needed for cold symptoms; cp 240 milliliter; Refills: 0, Product Selection Permitted - Paxlovid 300 mg (150 mg x 2)-100 mg Oral Tablet, Dose Pack - take 1 dose pack ORAL route as directed on dose pack for 5 days take TWO 150 mg cp tablets of nirmatrelvir with ONE 100 mg tablet of ritonavir twice daily for 5 days; 1 packet; Refills: 0, Product Selection Permitted - Ibuprofen 800 mg Oral Tablet - take 1 tablet ORAL route every 8 hours As needed take with food; 30 tablet; cp Refills: 0, Product Selection Permitted - Zofran 4 mg Oral Tablet - take 1 tablet ORAL route every 12 hours As needed; 20 tablet; Refills: 0, cp Product Selection Permitted Signatures: Dispatcher [employer] EDElmo Bowens PA PA Maurilio Vines RN RN as6 Leyla Gonzalez RN RN ha1 Nieves Del Real RN km8
[2023-06-22 02:22] VITALS: BP 117/70; TEMP 100.3; O2SAT 100
== END ==
LOC: ER 21:50
DX: U07.1 COVID-19 (principal)
CPT/HCPCS: 87070; 87081; 87635; 87804 ×2; Q0162

== ENCOUNTER 2024-02-01 22:13 | Emergency (ER) | payer OTHER ==
--- OUTSIDE RECORDS SUMMARY | 2024-02-01 22:17 | XMS REPORT | Continuity of Care Document ---
Author Name Unknown Address [address] [place] [address] [facility] thconnect Address [address] [place] [address] Care Team Providers Care Short Goods Drier Name Role Phone JAEL HOLLEY Primary Care Physician Unava ilSHAYY Cali Attending Clinician Unavail able Shayy Wei Attending Clinician + Shayy Wei Attending Clinician + ROBERTO SAEED Attending Clinician Roberto Lopez Attending Clinician +- [phone] ROMAN STARK Attending Clinician Unavaildarian Myers, Ang-Mfm Attending Clinician Roman Horton MD [facility]ending Clin[facility] Attending Clinician Unava ilable Doctor Unassigned, [place] Attending Clinician U navailable GISELLE MICHAEL Attending Clinician Unavailable Giselle Michael MD Attending Clinician + [phone] Arnaldo CHOI, Lauren K.H. Attending Clinician [phone] Maribel BOUDREAUX Attending Clinician Unavailable Carlos PACMaribel Attending Clinician +[phone] Gabe GNPEmilie L Attending Clinician Unav ailable Andrews SIGN LANGUAGE TRANSLATOR, Carol Amaro Attending Clinician + [phone] CAROL CHOI Attending Clinician Unavailab JOE Smart Attending Clinician Unavailable Joe Acharya NP Attending Clinician + [phone] ENDY VU Attending Clinician Unavailable Endy Vu MD Attending Clinician [phone] LAUREN RYAN K.HShahana Attending Clinician UnavailСЕРГЕЙ Winkler Attending Clinician Unavailable BRAD CARVAJAL Attending Clinician Unavailable SHAYY CROUCH Admitting Clinician Unavail able JOE ACHARYA Admitting Clinician Unavailable СЕРГЕЙ AREVALO Admitting Clinician Unavailable Payers Payer Name Policy Type Policy Number Effective Date Expirati on Date Source [facility] [id number] 2020 00:00:00 [facility] [id number] 2021 00:00:00 Problems Condition Name Condition Details Condition Category Status Onset Date Resolution Date Last Treatment Date Treating Clinician Comments Source Alpha thalassemi a silent carrier Alpha thalassemi a silent carrier Disease Active 8 00:00: 00 Overview: Formattin g of this note might be different from the original. Pending genetics [facility] Susceptibl e to varicella (non-immun e), currently Susceptibl e to varicella (non-immun e), currently Disease Active 10-25 00:00: 00 Overview: Formattin g of this note might be different from the original. Address [facility] Supervisio n of high-risk Supervisio n of high-risk Disease Active 10-24 00:00: 00 [facility] History of anxiety History of anxiety Disease Active 10-24 00:00: 00 [facility] History of depression History of depression Disease Active 10-24 00:00: 00 [facility] History of seizure History of seizure Disease Active 10-24 00:00: 00 Overview: Formattin g of this note might be different from the original. Reports at age 8/9, reports not on meds [facility] Need for HPV vaccinatio n Need for HPV vaccinatio n Disease Active 08-23 00:00: 00 [facility] BMI 37.0-37.9, adult BMI 37.0-37.9, adult Disease Active 2020-06 2 00:00: 00 [facility] Obesity in Obesity in Disease Active 2020-06 00:00: 00 [facility] Abdominal bloating Abdominal bloating Disease Resolve d 1- 00:00: 00 2023-10-25 00:00:00 2023-10-25 07:35:47 [facility] Other general counseling and advice for contracept jed management Other general counseling and advice for contracept jed management Disease Resolve d 1- 00:00: 00 2023-10-25 00:00:00 2023-10-25 07:35:37 [facility] Nausea and vomiting, intractabi lity of vomiting not specified, unspecifie d vomiting type Nausea and vomiting, intractabi lity of vomiting not specified, unspecifie d vomiting type Disease Resolve d 2020-06 2 00:00: 00 2023-10-25 00:00:00 2023-10-25 07:35:38 [facility] Screening examinatio n for STD (sexually transmitte d disease) Screening examinatio n for STD (sexually transmitte d disease) Disease Resolve d 8-20 00:00: 00 2023-10-25 00:00:00 2023-10-25 07:36:02 [facility] Depot contracept ion Depot contracept ion Disease Resolve d 01-24 00:00: 00 2023-10-25 00:00:00 2023-10-25 07:35:41 [facility] Allergies, Adverse Reactions, Alerts Allergy Name Allergy Type Status Severity Reaction(s) Onset Date Inactive Date Treating Clinician Comments Source NO KNOWN ALLERGIE S Drug Class Active [facility] Social History Social Habit Start Date Stop Date Quantity Comments Source ASSERTION 2023-10-06 00:00:00 [facility] Alcoholic beverage intake 2024-01-11 00:00:00 2024-01-11 00:00:00 Current non-drinker of alcohol (finding) [facility] History of Social function 2023-10-25 00:00:00 2023-10-25 00:00:00 [facility] Alcohol intake 2023-08-24 00:00:00 2023-08-24 00:00:00 Current non-drinker of alcohol (finding) [facility] Tobacco use and exposure 2023-04-15 00:00:00 2023-04-15 00:00:00 Smokeless tobacco non-user [facility] Exposure to SARS-CoV-2 (event) 2021-12-07 00:00:00 2021-12-17 05:04:00 Yes [facility] Sex assigned at 2000 00:00:00 2000 00:00:00 [facility] Smoking Status Start Date Stop Date Source Never smoked tobacco [facility] Medications Ordered Medication Name Filled Medication Name Start Date Stop Date Current Medication? Ordering Clinician Indication Dosage Frequency Signature (SIG) Comments Components Source NaCl 0.9% (NS) bolus infusion 1,000 mL 12-15 00:30: 00 12-15 02:33 :00 No 1000mL at 999 mL/hr, 1,000 mL, IV Infusion, ONCE, 1 dose, On Wed12/15/23 at 1930, HECTOR [facility] ondansetron (ZOFRAN (PF)) injection 4 mg 12-15 00:30: 00 12-15 01:25 :00 No 4mg 4 mg, Slow IV Push, ONCE, 1 dose, On Wed12/15/23 at 1930, HECTOR [facility] doxylamine- pyridoxine, vit B6, (DICLEGIS) 10-10 mg per tablet 11-09 00:00: 00 Yes [id number] 2{tbl} Take 2 tablets by mouth at bedtime. [facility] proMETHazin e 25 mg tablet 11-09 00:00: 00 11-09 00:00 :00 No [id number] 25mg Take 1 tablet by mouth every 6 (six) hours as needed for Nausea and Vomiting (N/V). [facility] PNV 67-iron ps-folate no.1-dha (VITAFOL ULTRA) 29 mg iron- 1 mg-200 mg Cap 10-24 00:00: 00 Yes [id number] 1{each} Take 1 Each by mouth in the morning. [facility] proMETHazin e 25 mg tablet 10-24 00:00: 00 Yes [id number] 25mg Take 1 tablet by mouth every 6 (six) hours as needed for Nausea and Vomiting (N/V). [facility] ibuprofen (IBU) tablet 800 mg 12-17 10:15: 00 12-17 10:13 :00 No 800mg 800 mg, Oral, ONCE, 1 dose, On Wed12/17/21 at 0515, HECTOR [facility] ibuprofen 800 mg tablet 12-17 00:00: 00 04-15 00:00 :00 No [id number] 800mg Take 1 tablet by mouth every 8 (eight) hours as needed for Temp > 38.5 C or Pain (scale 4-6). [facility] benzonatate 200 mg capsule 12-17 00:00: 00 04-15 00:00 :00 No [id number] 200mg Take 1 capsule by mouth 3 (three) times daily as needed for Cough. [facility] ondansetron (ZOFRAN) 4 mg tablet 2022-0 7-13 00:00: 00 04-15 00:00 :00 No [id number] 4mg Take 1 tablet by mouth every 8 (eight) hours as needed for Nausea and Vomiting (N/V). [facility] dicyclomine (BENTYL) capsule 20 mg 07-30 06:00: 00 07-30 05:05 :00 No 20mg 20 mg, Oral, ONCE, 1 dose, On Wed07/30/21 at 0000, Routine [facility] dicyclomine 20 mg tablet 07-29 00:00: 00 04-15 00:00 :00 No [id number] 20mg Take 1 tablet by mouth 4 (four) times daily. [facility] risperiDONE 4 mg tablet 2020-06 09:15: 53 06-03 00:00 :00 No 4mg Take 4 mg by mouth at bedtime. [facility] albuterol 90 mcg/actuati on inhaler 11-16 00:00: 04-15 00:00 :00 No [id number] 2{puff} Inhale 2 Puffs every 4 (four) hours as needed for Wheezing or Shortness of Breath. [facility] medroxyPROG ESTERone (DEPO-PROVE RA) injection 150 mg 8-20 15:00: 00 10-03 13:19 :00 No [id number] 150mg Univer [facility] promethazin e-codeine 6.25-10 mg/5 mL syrup 08-12 00:00: 00 08-12 00:00 :00 No 5mL Take 5 mL by mouth 4 (four) times daily as needed for Cough. [facility] sod chlor-bicar b-squeez bottle (NEILMED SINUS RINSE COMPLETE) pkdv 08-12 00:00: 00 08-12 00:00 :00 No 1{bottl e} Use 1 Bottle in each nostril 2 (two) times daily. Use in hot shower 1 hour before bedtime [facility] fluocinolon e 0.01 % body oil 09-11 00:00: 00 04-15 00:00 :00 No [facility] fluticasone 50 mcg/actuati on nasal spray 09-09 00:00: 00 04-15 00:00 :00 No [facility] mometasone 0.1 % ointment 09-09 00:00: 00 04-15 00:00 :00 No [facility] naproxen (NAPROSYN) 500 mg tablet 01-13 00:00: 00 08-12 00:00 :00 No 500mg Take 1 Tab by mouth 2 (two) times daily with meals. [facility] acetaminoph en-codeine (TYLENOL #2) 300-15 mg tablet 01-13 00:00: 00 08-12 00:00 :00 No 1{tbl} Take 1 Tab by mouth every 6 (six) hours as needed for Pain. [facility] Immunizations Ordered Immunization Name Filled Immunization Name Date Status Comments Source HPV9 Unknown Completed [facility] HPV9 Unknown Completed [facility] HPV9 Unknown Completed [facility] HPV9 Unknown Completed [facility] HPV9 Unknown Completed [facility] HPV9 Unknown Completed [facility] HPV9 Unknown Completed [facility] HPV9 Unknown Completed [facility] HPV9 Unknown Completed [facility] HPV9 Unknown Completed [facility] HPV9 Unknown Completed [facility] HPV9 Unknown Completed [facility] HPV9 Unknown Completed [facility] HPV9 Unknown Completed [facility] HPV9 Unknown Completed [facility] HPV9 Unknown Completed [facility] HPV9 Unknown Completed [facility] HPV9 Unknown Completed [facility] HPV9 Unknown Completed [facility] HPV9 Unknown Completed [facility] HPV9 Unknown Completed [facility] HPV9 Unknown Completed [facility] HPV9 Unknown Completed [facility] HPV9 Unknown Completed [facility] HPV9 Unknown Completed [facility] HPV9 Unknown Completed [facility] HPV9 Unknown Completed [facility] HPV9 Unknown Completed [facility] HPV9 Unknown Completed [facility] HPV9 Unknown Completed [facility] HPV9 Unknown Completed [facility] HPV9 Unknown Completed [facility] HPV9 Unknown Completed [facility] Vital Signs Vital Name Observation Time Observation Value Comments S annemariece Systolic blood pressure 2024-01-11 20:26:00 139 mm[Hg] [facility] Diastolic blood pressure 2024-01-11 20:26:00 75 mm[Hg] [facility] Heart rate 2024-01-11 20:26:00 76 /min Unive [facility] Body temperature 2024-01-11 20:26:00 36.61 Tory [facility] Respiratory rate 2024-01-11 20:26:00 17 /min [facility] Body height 2024-01-11 20:26:00 157.5 cm [facility] Body weight 2024-01-11 20:26:00 89.994 kg [facility] BMI 2024-01-11 20:26:00 36.29 kg/m2 [facility] Systolic blood pressure 2023-12-27 13:59:00 123 mm[Hg] [facility] Diastolic blood pressure 2023-12-27 13:59:00 71 mm[Hg] [facility] Heart rate 2023-12-27 13:59:00 70 /min [facility] Body temperature 2023-12-27 13:59:00 36.67 Tory [facility] Respiratory rate 2023-12-27 13:59:00 18 /min [facility] Body height 2023-12-27 13:59:00 157.5 cm [facility] Body weight 2023-12-27 13:59:00 88.633 kg [facility] BMI 2023-12-27 13:59:00 35.74 kg/m2 [facility] Systolic blood pressure 2023-12-16 02:33:00 121 mm[Hg] [facility] Diastolic blood pressure 2023-12-16 02:33:00 65 mm[Hg] [facility] Heart rate 2023-12-16 02:33:00 61 /min Unive [facility] Body temperature 2023-12-16 02:33:00 36.89 Tory [facility] Respiratory rate 2023-12-16 02:33:00 16 /min [facility] Oxygen saturation in Arterial blood by Pulse oximetry 2023-12-16 02:33:00 100 /min [place] [facility] Body height 2023-12-15 23:15:00 157.5 cm [facility] Body weight 2023-12-15 23:15:00 92.987 kg [facility] BMI 2023-12-15 23:15:00 37.49 kg/m2 [facility] Systolic blood pressure 2023-11-29 14:23:00 125 mm[Hg] [place] [facility] Diastolic blood pressure 2023-11-29 14:23:00 66 mm[Hg] [facility] Heart rate 2023-11-29 14:23:00 63 /min Unive [facility] Body temperature 2023-11-29 14:23:00 36.06 Tory [facility] Respiratory rate 2023-11-29 14:23:00 17 /min [facility] Body height 2023-11-29 14:23:00 152.4 cm [facility] Body weight 2023-11-29 14:23:00 90.538 kg [facility] BMI 2023-11-29 14:23:00 38.98 kg/m2 [facility] Systolic blood pressure 2023-11-10 17:31:00 122 mm[Hg] [place] [facility] Diastolic blood pressure 2023-11-10 17:31:00 67 mm[Hg] [facility] Heart rate 2023-11-10 17:31:00 49 /min Unive [facility] Body temperature 2023-11-10 17:31:00 36.72 Tory [facility] Respiratory rate 2023-11-10 17:31:00 17 /min [facility] Body height 2023-11-10 17:31:00 152.4 cm [facility] Body weight 2023-11-10 17:31:00 93.214 kg Univ [facility] BMI 2023-11-10 17:31:00 40.13 kg/m2 [facility] Systolic blood pressure 2023-10-25 12:10:00 116 mm[Hg] [place] [facility] Diastolic blood pressure 2023-10-25 12:10:00 72 mm[Hg] [facility] Heart rate 2023-10-25 12:10:00 78 /min Unive [facility] Body temperature 2023-10-25 12:10:00 37.22 Tory [facility] Respiratory rate 2023-10-25 12:10:00 16 /min [facility] Body height 2023-10-25 12:10:00 157.5 cm [facility] Body weight 2023-10-25 12:10:00 95.255 kg [facility] BMI 2023-10-25 12:10:00 38.41 kg/m2 [facility] Systolic blood pressure 2023-08-24 19:00:00 122 mm[Hg] [facility] Diastolic blood pressure 2023-08-24 19:00:00 76 mm[Hg] [facility] Heart rate 2023-08-24 19:00:00 72 /min Unive [facility] Body temperature 2023-08-24 19:00:00 36.5 Tory [facility] Respiratory rate 2023-08-24 19:00:00 18 /min [facility] Body height 2023-08-24 19:00:00 157.5 cm Univ [facility] Body weight 2023-08-24 19:00:00 92.806 kg [facility] BMI 2023-08-24 19:00:00 37.42 kg/m2 [facility] Systolic blood pressure 2023-04-15 20:23:00 119 mm[Hg] [place] [facility] Diastolic blood pressure 2023-04-15 20:23:00 79 mm[Hg] [facility] Heart rate 2023-04-15 20:23:00 79 /min Unive [facility] Body temperature 2023-04-15 20:23:00 36.44 Tory [facility] Respiratory rate 2023-04-15 20:23:00 18 /min [facility] Body height 2023-04-15 20:23:00 157.5 cm [facility] Body weight 2023-04-15 20:23:00 93.804 kg [facility] BMI 2023-04-15 20:23:00 37.82 kg/m2 [facility] Body temperature 2021-12-17 11:11:00 38.11 Tory [facility] Systolic blood pressure 2021-12-17 10:06:00 112 mm[Hg] [facility] Diastolic blood pressure 2021-12-17 10:06:00 73 mm[Hg] [facility] Heart rate 2021-12-17 10:06:00 100 /min Unive [facility] Respiratory rate 2021-12-17 10:06:00 18 /min [facility] Body height 2021-12-17 10:06:00 157.5 cm [facility] Body weight 2021-12-17 10:06:00 86.183 kg [facility] BMI 2021-12-17 10:06:00 34.75 kg/m2 [facility] Oxygen saturation in Arterial blood by Pulse oximetry 2021-12-17 10:06:00 100 /min [facility] Systolic blood pressure 2021-07-30 03:20:00 133 mm[Hg] [facility] Diastolic blood pressure 2021-07-30 03:20:00 68 mm[Hg] [facility] Heart rate 2021-07-30 03:20:00 85 /min Unive [facility] Body temperature 2021-07-30 03:20:00 37.22 Tory [facility] Respiratory rate 2021-07-30 03:20:00 18 /min [facility] Body height 2021-07-30 03:20:00 157.5 cm [facility] Body weight 2021-07-30 03:20:00 87.091 kg [facility] BMI 2021-07-30 03:20:00 35.12 kg/m2 [facility] Oxygen saturation in Arterial blood by Pulse oximetry 2021-07-30 03:20:00 100 /min [place] [facility] Procedures Procedure Date / Time Performed Performing Clinician Source POCT URINALYSIS 2024-01-11 21:18:00 Shayy Crouch [facility] POCT URINALYSIS 2023-12-27 14:01:00 Shayy Crouch [facility] COMP. METABOLIC PANEL ([id number]) 2023-12-16 01:26:00 [facility] CBC WITH DIFF 2023-12-16 01:26:00 Christophe [facility] FIRST TRIMESTER ULTRASOUND 2023-12-01 16:38:00 Shayy Crouch [facility] POCT URINALYSIS 2023-11-29 14:24:00 Shayy Crouch [facility] POCT URINALYSIS 2023-11-10 00:00:00 Shayy Crouch [facility] GC & CHLAMYDIA AMPLIFIED ASSAY 2023-10-25 14:05:00 Shayy Crouch [facility] URINE CULTURE 2023-10-25 14:03:00 Shayy Crouch [facility] GC & CHLAMYDIA AMPLIFIED ASSAY 2023-10-25 14:03:00 Shayy Crouch [facility] GLUCOSE 1 HOUR POST PRANDIAL 2023-10-25 13:05:00 Shayy Crouch [facility] RUBELLA SCREEN IGG 2023-10-25 13:05:00 Gerber Crouch [facility] VZV ANTIBODY SCREEN 2023-10-25 13:05:00 Jasbir Crouch [facility] HEPATITIS B SURFACE ANTIGEN 2023-10-25 13:05:00 Shayy Crouch [facility] HCV ANTIBODY 2023-10-25 13:05:00 Shayy Crouch [facility] HB ABO GROUPING 2023-10-25 13:05:00 Shayy Crouch [facility] HIV 1/2 AG-AB WITH REFLEX 2023-10-25 13:05:00 Shayy Crouch [facility] SYPHILIS IGG/IGM 2023-10-25 13:05:00 Sherif Crouch [facility] POCT TEST 2023-10-25 00:00:00 Jasbir Crouch [facility] POCT URINALYSIS W/O SPECIFIC GRAVITY 2023-10-25 00:00:00 Shayy Crouch [facility] GARDASIL 9 (HPV 9V) VACCINE 2023-08-24 19:05:44 Shayy Crouch [facility] GARDASIL 9 (HPV 9V) VACCINE 2023-04-15 20:32:05 Shyay Crouch [facility] CONSENT/REFUSAL FOR DIAGNOSIS AND TREATMENT 2023-04-15 20:10:29 Doctor Unassigned, [place] [facility] RAPID INFLUENZA A/B 2021-12-17 10:12:00 Giselle Michael [facility] COVID-19 (ID NOW RAPID TESTING) 2021-12-17 10:12:00 Giselle Michael [facility] CONSENT/REFUSAL FOR DIAGNOSIS AND TREATMENT 2021-12-17 09:57:24 Doctor Unassigned, [place] [facility] POCT TEST 2021-07-30 03:24:00 Giselle Michael [facility] URINALYSIS 2021-07-30 03:23:00 Giselle Michael [facility] CONSENT/REFUSAL FOR DIAGNOSIS AND TREATMENT 2021-07-30 03:07:06 Doctor Unassigned, [place] [facility] Encounters Start Date/Time End Date/Time Encounter Type Admission Type Attending Clinicians Care Facility Care Department Encounter ID Source 2021-04-07 13:54:48 Emergency [facility] [id number] [facility] 2021-04-07 02:40:27 Emergency [facility] [id number] [facility] 2021-04-07 00:50:22 Emergency [facility] [id number] [facility] 2021-04-06 04:02:40 Emergency [facility] [id number] [facility] 2021-04-05 18:49:56 Emergency [facility] [id number] [facility] 2021-04-05 17:13:06 Emergency [facility] [id number] [facility] 2021-04-05 01:27:27 Emergency [facility] [id number] [facility] 2024-01-11 15:15:00 2024-01-11 16:15:24 Outpatient R SHAYY CROUCH [facility] [id number] [facility] 2024-01-11 15:15:00 2024-01-11 16:15:24 Routine Visit Shayy Crouch [facility] NOTCHING MACHINE OPERATOR [facility] [id number] [facility] 2024-01-10 00:00:00 2024-01-10 15:49:22 Telephone Shayy Crouch [facility] NOTCHING MACHINE OPERATOR [facility] [id number] [facility] 2023-12-06 00:00:00 2024-01-08 18:22:44 Patient Secure Msg Shayy Crouch [facility] NOTCHING MACHINE OPERATOR [facility] [id number] [facility] 2023-12-28 14:00:00 2023-12-28 14:00:00 Outpatient R [facility] [id number] [facility] 2023-12-27 09:00:00 2023-12-27 09:15:00 Routine Visit Shayy Crouch Asya [facility] NOTCHING MACHINE OPERATOR [facility] [id number] [facility] 2023-12-27 09:00:00 2023-12-27 09:00:00 Outpatient R SHAYY CROUCH [facility] [id number] [facility] 2023-12-15 18:17:00 2023-12-15 21:40:00 Emergency X [facility] ERT [id number] [facility] 2023-12-15 18:17:00 2023-12-15 21:40:00 Emergency [place], Roberto [facility] [id number] [facility] 2023-10-30 00:00:00 2023-12-04 18:20:16 Patient Secure Msg DianelucGerberShayy C [facility] NOTCHING MACHINE OPERATOR [facility] [id number] [facility] 2023-12-02 00:00:00 2023-12-02 14:06:21 Abstract FarooqchuyShayy calle [facility] NOTCHING MACHINE OPERATOR [facility] [id number] [facility] 2023-12-01 11:30:00 2023-12-01 11:38:10 Outpatient P ROMAN STARK [facility] [id number] [facility] 2023-12-01 11:30:00 2023-12-01 11:38:10 Electric Well Logging Operator Visit Ultrasound, Roman Armenta [facility] NOTCHING MACHINE OPERATOR [facility] 1..840.114 350.1.13.10 4.2.7.2.686 [id number] [facility] 2023-11-29 09:00:00 2023-11-29 09:55:10 Outpatient R SHAYY CROUCH [facility] [id number] [facility] 2023-11-29 09:00:00 2023-11-29 09:55:10 Routine Visit Shayy Crouch [facility] NOTCHING MACHINE OPERATOR [facility] ..840.114 350.1.13.10 4.2.7.2.686 [id number] 107 [id number] [facility] 2023-11-22 07:15:00 2023-11-22 07:15:00 Outpatient R SHAYY CROUCH [facility] [id number] [facility] 2023-11-10 12:45:00 2023-11-10 12:54:18 Outpatient R SHAYY CROUCH [facility] [id number] [facility] 2023-11-10 12:45:00 2023-11-10 12:54:18 Routine Visit Shayy Crouch [facility] NOTCHING MACHINE OPERATOR [facility] ..840.114 350.1.13.10 4.2.7.2.686 [id number] 107 [id number] [facility] 2023-10-26 00:00:00 2023-10-26 16:35:02 Patient Secure Msg Shayy Crouch [facility] NOTCHING MACHINE OPERATOR [facility] 1..840.114 350.1.13.10 4.2.7.2.686 [id number] [facility] 2023-10-25 00:00:00 2023-10-25 08:32:01 Letter (Out) Shayy Crouch [facility] NOTCHING MACHINE OPERATOR [facility] 1.2.840.114 350.1.13.10 4.2.7.2.686 [id number] 107 [id number] [facility] 2023-10-25 06:45:00 2023-10-25 08:02:39 Outpatient R SHAYY CROUCH [facility] [id number] [facility] 2023-10-25 06:45:00 2023-10-25 08:02:39 Initial Visit Shayy Crouch [facility] NOTCHING MACHINE OPERATOR [facility] 1.2.840.114 350.1.13.10 4.2.7.2.686 [id number] [facility] 2023-10-21 14:30:00 2023-10-21 14:30:00 Outpatient R [facility] [id number] [facility] 2023-08-24 14:00:00 2023-08-24 14:09:31 Nurse Visit Visit, Ang-Rmchp Nurse Shayy Crouch [facility] NOTCHING MACHINE OPERATOR [facility] 1.2.840.114 350.1.13.10 4.2.7.2.686 [id number] [facility] 2023-08-24 13:30:00 2023-08-24 14:00:00 Initial Visit Shayy Crouch [facility] NOTCHING MACHINE OPERATOR [facility] 1.2.840.114 350.1.13.10 4.2.7.2.686 [id number] [facility] 2023-08-24 13:30:00 2023-08-24 13:30:00 Outpatient R SHAYY CROUCH [facility] [id number] [facility] 2023-05-20 14:30:00 2023-05-20 14:30:00 Outpatient R [facility] [id number] [facility] 2023-04-21 15:00:00 2023-04-21 15:00:00 Outpatient R [facility] [id number] [facility] 2023-04-16 14:00:00 2023-04-16 14:00:00 Outpatient R [facility] [id number] [facility] 2023-04-15 14:15:00 2023-04-15 14:58:19 Outpatient R SHAYY CROUCH [facility] [id number] [facility] 2023-04-15 14:15:00 2023-04-15 14:58:19 Office Visit Shayy Crouch [facility] NOTCHING MACHINE OPERATOR [facility] 1..114 350.1.13.10 4.2.7.2.686 [id number] 107 [id number] [facility] 2023-04-15 00:00:00 2023-04-15 00:00:00 Orders Only Doctor Unassigned, [place] [facility] 1..114 350.1.13.10 4.2.7.2.686 [id number] [facility] 2021-12-17 05:07:00 2021-12-17 06:44:00 Emergency X BERNIEHARJINDERKATELYN ANIYABIBIANA [facility] ERT [id number] [facility] 2021-12-17 05:07:00 2021-12-17 06:44:00 Emergency Giselle Michael S [facility] 1.84.114 350.1.13.10 4.2.7.2.686 [id number] [facility] 2021-09-07 00:00:00 2021-09-07 00:00:00 Telephone Lauren Ryan [facility] PROFESSIO [facility] 1.84.114 350.1.13.10 4.2.7.2.686 [id number] [facility] 2021-07-29 21:38:00 2021-07-29 23:12:00 Emergency X Maribel BOUDREAUX [facility] ERT [id number] [facility] 2021-07-29 21:38:00 2021-07-29 23:12:00 Emergency Maribel Boudreaux [facility] 1.2.840.114 350.1.13.10 4.2.7.2.686 [id number] [facility] 2021-07-18 00:00:00 2021-07-18 00:00:00 Telephone Emilie Bernal [facility] 1.20.114 350.1.13.10 4.2.7.2.686 [id number] [facility] 2021-07-17 16:13:22 2021-07-17 23:59:00 Outpatient R SHAYY CROUCH [facility] [id number] [facility] 2021-07-17 16:13:22 2021-07-17 23:59:00 Hospital Encounter Shayy Crouch [facility] 1.0.114 350.1.13.10 4.2.7.2.686 [id number] [facility] 2021-07-17 16:13:22 2021-07-17 23:59:00 Outpatient R SHAYY CROUCH 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 [facility] 1.2.840.114 350.1.13.10 4.2.7.2.686 [id number] [facility] 2021-06-17 00:00:00 2021-06-17 00:00:00 Patient Secure Shayy Sharma [facility] 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 MACHINE 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 [facility] 1.2.840.114 350.1.13.10 4.2.7.2.686 [id number] [facility] 2021-06-05 00:00:00 2021-06-05 00:00:00 Patient Secure Shayy Sharma [facility] 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 [id number] [facility] 2021-06-03 08:30:00 2021-06-03 08:30:00 Outpatient EMILY BRADLEYEVERETT [facility] [id number] [facility] 2021-06-03 08:30:00 2021-06-03 08:30:00 Outpatient EMILY BRADLEYEVERETT [facility] [id number] [facility] 2021-06-03 00:00:00 2021-06-03 00:00:00 Orders Only Doctor Unassigned, [place] [facility] 1.2.840.114 350.1.13.10 4.2.7.2.686 [id number] [facility] 2021-04-06 16:27:00 2021-04-06 20:45:00 Emergency X JOE ACHARYA [facility] ERT [id number] [facility] 2021-04-06 16:27:00 2021-04-06 20:45:00 Emergency Joe Acharya [facility] 1.2.840.114 350.1.13.10 4.2.7.2.686 [id number] [facility] 2021-04-05 15:58:00 2021-04-05 17:53:00 Emergency X RITAENDY [facility] ERT [id number] [facility] 2021-04-05 15:58:00 2021-04-05 17:53:00 Emergency Endy Vu [facility] 1..840.114 350.1.13.10 4.2.7.2.686 [id number] [facility] 2021-04-05 00:00:00 2021-04-05 00:00:00 Orders Only Doctor Unassigned, [place] [facility] 1.840.114 350.1.13.10 4.2.7.2.686 [id number] [facility] 2020-12-26 08:00:00 2020-12-26 08:00:00 Outpatient R [facility] [id number] [facility] 2020-12-25 10:00:00 2020-12-25 10:00:00 Outpatient R [facility] [id number] [facility] 2020-11-15 18:20:00 2020-11-15 18:20:00 Outpatient R [facility] [id number] [facility] 2020-10-18 09:30:00 2020-10-18 09:30:00 Outpatient R LAUREN RYAN [facility] [id number] [facility] 2020-10-03 08:00:00 2020-10-03 08:00:00 Outpatient R [facility] [id number] [facility] 2020-10-01 14:00:00 2020-10-01 14:00:00 Outpatient R LAUREN RYAN [facility] [id number] [facility] 2020-09-06 15:30:00 2020-09-06 15:30:00 Outpatient R LAUREN RYAN [facility] [id number] [facility] 2020-08-12 10:40:00 2020-08-12 12:36:00 Emergency X СЕРГЕЙ AREVALO [facility] ERT [id number] [facility] 2020-08-05 00:00:00 2020-08-05 00:00:00 Patient Secure Msg Doctor Unassigned, [place] [facility] NOTCHING MACHINE OPERATOR [facility] 1..840.114 350.1.13.10 4.2.7.2.686 [id number] [facility] 2020-07-11 08:30:00 2020-07-11 08:30:00 Outpatient R SHAYY CROUCH [facility] [id number] [facility] 2020-06-27 00:00:00 2020-06-27 00:00:00 Patient Secure Msg Doctor Unassigned, [place] [facility] NOTCHING MACHINE OPERATOR [facility] 1.2.840.114 350.1.13.10 4.2.7.2.686 [id number] [facility] 2020-06-26 00:00:00 2020-06-26 00:00:00 Patient Secure Msg Doctor Unassigned, [place] [facility] NOTCHING MACHINE OPERATOR [facility] 1.2.840.114 350.1.13.10 4.2.7.2.686 [id number] [facility] 2020-06-11 00:00:00 2020-06-11 00:00:00 Patient Secure Msg Doctor Unassigned, [place] [facility] NOTCHING MACHINE OPERATOR [facility] 1.2.840.114 350.1.13.10 4.2.7.2.686 [id number] [facility] 2020-06-04 00:00:00 2020-06-04 00:00:00 Patient Secure Msg Doctor Unassigned, [place] [facility] NOTCHING MACHINE OPERATOR [facility] 1.2.840.114 350.1.13.10 4.2.7.2.686 [id number] [facility] 2020-04-18 08:00:00 2020-04-18 08:00:00 Outpatient R [facility] [id number] [facility] 2020-04-02 15:30:00 2020-04-02 15:30:00 Outpatient R BRAD CARVAJAL [facility] [id number] [facility] 2020-01-25 09:00:00 2020-01-25 09:00:00 Outpatient R [facility] [id number] [facility] Results Test Description Test Time Test Comments Results Result Co [facility] [id number] 14:01:00* Test Item Value Reference Range Interpretation Comme nts POCT U SP GRAV (test code = 3255) . 1.005-1.025 POCT PH U (test code = 3254) . 5-8 POCT U LEUK EST (test code = 3263) . Negative - N egative POCT U NIT (test code = 3262) . Negative - Negati ve POCT U PROT (test code = 3259) trace Negative - Negat jed POCT U GLU (test code = 3256) neg Negative - Negati ve POCT U KETONE (test code = 3258) . Negative - Neg ative POCT U UROBILI (test code = 3260) . 0.2-1 POCT U BILI (test code = 3261) . Negative - Negat jed POCT U BLD (test code = 3257) . Negative - Negati ve POCT U COLOR (test code = 3266) . POCT U APPEAR (test code = 3267) [facility]. METABOLIC PANEL ([id number])2023-12-16 01:58:21* Test Item Value Reference Range Interpretation Comme nts NA (test code = 4313955076) 134 mmol/L 135-145 L K (test code = 9296737107) 3.5 mmol/L 3.5-5.0 CL (test code = 6606786438) 99 mmol/L 98-108 CO2 TOTAL (test code = 7912570329) 25 mmol/L 23-31 AGAP (test code = 5685670832) 10 2-16 BUN (test code = 3804639102) 4 mg/dL 7-23 L GLUCOSE (test code = 1967578604) 84 mg/dL 70-110 CREATININE (test code = 2160-0) 0.50 mg/dL 0.50-1.04 TOTAL BILI (test code = 5624931466) 0.8 mg/dL 0.1-1.1 CALCIUM (test code = 8913374149) 9.8 mg/dL 8.6-10.6 T PROTEIN (test code = 0286969378) 9.3 g/dL 6.3-8.2 H ALBUMIN (test code = 0757104541) 5.1 g/dL 3.5-5.0 H ALK PHOS (test code = 0007916438) 54 U/L 34-122 ALTv (test code = 1742-6) 12 U/L 5-35 AST(SGOT) (test code = 2758309332) 22 U/L 13-40 eGFR (test code = 12501-1) 135.3 mL/min/1.73m2 CKD-EPI eGFR (2020). Assuming creatinine has been stable day-to-day for at least three months, the eGFR indicates Category G1 (>= 90 mL/min/1.73 m2) Lab Interpretation (test code = 45538-4) Abnormal [facility] WITH [id number] 01:41:00* Test Item Value Reference Range Interpretation Comme nts WBC (test code = 6690-2) 7.37 4.30-11.10 RBC (test code = 789-8) 4.69 3.93-5.25 HGB (test code = 718-7) 12.4 g/dL 11.6-15.0 HCT (test code = 4544-3) 37.9 % 35.7-45.2 MCV (test code = 787-2) 80.8 fL 80.6-95.5 MCH (test code = 785-6) 26.4 pg 25.9-32.8 MCHC (test code = 786-4) 32.7 g/dL 31.6-35.1 RDW-SD (test code = 25475-3) 43.3 fL 39.0-49.9 RDW-CV (test code = 788-0) 14.7 % 12.0-15.5 PLT (test code = 777-3) 253 166-358 MPV (test code = 94489-7) 10.7 fL 9.5-12.9 NRBC/100 WBC (test code = 3766023293) 0.0 0.0-10.0 NRBC x10^3 (test code = 8042410787) See_Comment [Automated me ssage] The system which generated this result transmitted reference range: 10*3/?L. The reference range was not used to interpret this result as normal/abnormal. GRAN MAT (NEUT) % (test code = 770-8) 65.1 % IMM GRAN % (test code = 5302013986) 0.50 % LYMPH % (test code = 736-9) 26.6 % MONO % (test code = 5905-5) 4.7 % EOS % (test code = 713-8) 2.7 % BASO % (test code = 706-2) 0.4 % GRAN MAT x10^3(ANC) (test code = 3966873668) 4.79 10*3/uL 1.88-7.09 IMM GRAN x10^3 (test code = 4898259189) 0.04 10*3/uL 0.00-0.06 LYMPH x10^3 (test code = 731-0) 1.96 10*3/uL 1.32-3.29 MONO x10^3 (test code = 742-7) 0.35 10*3/uL 0.33-0.92 EOS x10^3 (test code = 711-2) 0.20 10*3/uL 0.03-0.39 BASO x10^3 (test code = 704-7) 0.03 10*3/uL 0.01-0.07 [facility] URINALYSIS W SPECIFIC [id number] 14:24:00* Test Item Value Reference Range Interpretation Comme nts POCT U SP GRAV (test code = 3255) . 1.005-1.025 POCT PH U (test code = 3254) . 5-8 POCT U LEUK EST (test code = 3263) . Negative - N egative POCT U NIT (test code = 3262) . Negative - Negati ve POCT U PROT (test code = 3259) trace Negative - Negat jed POCT U GLU (test code = 3256) neg Negative - Negati ve POCT U KETONE (test code = 3258) . Negative - Neg ative POCT U UROBILI (test code = 3260) . 0.2-1 POCT U BILI (test code = 3261) . Negative - Negat jed POCT U BLD (test code = 3257) . Negative - Negati ve POCT U COLOR (test code = 3266) POCT U APPEAR (test code = 3267) [facility] URINALYSIS W SPECIFIC [id number] 17:35:00* Test Item Value Reference Range Interpretation Comme nts POCT U SP GRAV (test code = 3255) . 1.005-1.025 POCT PH U (test code = 3254) . 5-8 POCT U LEUK EST (test code = 3263) . Negative - N egative POCT U NIT (test code = 3262) . Negative - Negati ve POCT U PROT (test code = 3259) trace Negative - Negat jed POCT U GLU (test code = 3256) neg Negative - Negati ve POCT U KETONE (test code = 3258) . Negative - Neg ative POCT U UROBILI (test code = 3260) . 0.2-1 POCT U BILI (test code = 3261) . Negative - Negat jed POCT U BLD (test code = 3257) . Negative - Negati ve POCT U COLOR (test code = 3266) . POCT U APPEAR (test code = 3267) . [facility] Urinalysis w/o Specific [id number] 12:13:00* Test Item Value Reference Range Interpretation Comme nts POCT PH U (test code = 3254) 6 mg/dl 5-8 POCT U LEUK EST (test code = 3263) neg Negative - Negative POCT U NIT (test code = 3262) neg Negative - Negati ve POCT U PROT (test code = 3259) trace Negative - Negat jed POCT U GLU (test code = 3256) normal Negative - Negati ve POCT U KETONE (test code = 3258) neg Negative - Neg ative POCT U BLD (test code = 3257) neg Negative - Negati ve [facility] [id number] 12:13:00* Test Item Value Reference Range Interpretation Comme nts POCT PREG (test code = 1605) Positive On board controls acceptable with C Line (test code = 3574) Yes POCT PREG LOT # (test code = 3575) POCT PREG TEST DATE ( test code = 3576) [facility] [id number] 03:24:00* Test Item Value Reference Range Interpretation Comme nts POCT PREG (test code = 1605) NEG On board controls acceptable with C Line (test code = 3574) YES POCT PREG LOT # (test code = 3575) [id number] POCT PREG TEST DATE ( test code = 3576) 08/04/2022 Lab Interpretation (test cod e = 89085-4) Normal [facility] Notes Date/Time Note Provider Source 2024-01-10 15:39:36 Patient stated she has felt tired and dizzy for the last couple of days. Stated she works 12 hour shifts about 6 days a week and is not sure if she is tired from that. Patient stated she is hydrating and eating 3 times a day. Advised patient to drink 8-10 bottles of water a day and to eat 3 meals a day with 3 snacks in between. Advised to rest as much as possible when at work and offered appt for evaluation, appt given for tomorrow at 3:15, ER warnings given, verbalized understanding. Kendra Martinez LVN [facility] 2023-12-15 21:39:07 Pt given printed and verbal discharge instructions regarding n/v, encouraged hydration. Pt verbalized understanding of instructions, pt awake alert oriented, resp reg unlabored, skin w/d, color appropriate for race, moves all ext well,pt encouraged to follow up with pcp and or OBGYN Advised to seek medical attention for new/prolonged/worsening of symptoms. No adverse reaction to meds given in ER noted upon discharge PIV d'cd, dressing to site, catheter in tact. Awake, alert oriented, resp reg unlabored, skin w/d, pt leaving amb with steady gait, in no apparent distress. Annette Bernstein RN [facility] 2023-12-15 18:14:07 Pt arrived with c/o having asthma attack last night pt feel overheated increased vomiting. Pt is 11 weeks wants to get checked out. Maria Del Carmen Moreno RN [facility]
[2024-02-01 23:25] LABS: Absolute Eosinophils 0.1 K/uL (0-0.5); Absolute Lymphocytes (CBC) 1.9 K/uL (0.7-4.9); Absolute Monocytes 0.4 K/uL (0.1-1.3); Absolute Neutrophil 5.8 K/uL (1.8-8.0); Basophils % 0.3 % (0-1.3); Eosinophils % 1.2 % (0-4.4); Hematocrit 35.7 % (36.0-45.0); Hemoglobin 11.5 g/dL (12.0-15.0); Lymphocytes % 23.3 % (15.3-44.8); MCH 26.5 pg (27.0-35.0); MCHC 32.2 g/dL (32.0-36.0); MCV 82.3 fL (80-100); MPV 9.3 fL (7.6-11.3); Monocytes % 4.8 % (3.3-12.3); Neutrophils % 70.4 % (41.7-73.7); Platelets 236 thou/uL (152-406); RBC Red Blood Cell Count 4.34 M/uL (3.86-4.86); Red Cell Distribution Width 15.5 % (12.1-15.2)
[2024-02-01 23:46] LABS: Specific Gravity 1.015 (1.005-1.030)
[2024-02-01 23:51] LABS: Anion Gap 10.4 mEq/L (5.0-15.0); Potassium 3.4 mEq/L (3.5-5.1)
[2024-02-01 23:53] LABS: Specific Gravity 1.014 (1.005-1.030); Sqamous Epithelial <5 /HPF (None Seen); Urine Bacteria <20 /HPF (<20); Urine Bilirubin NEGATIVE (Negative); Urine Blood Negative (Negative); Urine Clarity Turbid (Clear); Urine Color Light-Yellow (Yellow); Urine Culture Reflex Order NOT NEEDED; Urine Glucose NEGATIVE (Negative); Urine Ketones NEGATIVE (Negative); Urine Microscopic Reflex YN ORDER UMIC; Urine Mucus Slight /HPF (None Seen); Urine Nitrite NEGATIVE (Negative); Urine Protein NEGATIVE (Negative); Urine RBC <5 /HPF (None Seen); Urine Urobilinogen Normal (Normal); Urine WBC <5 /HPF (<5)
--- NOTE | 2024-02-02 00:05 | ER ---
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 Coronavirus screen: kc At this time, the client does not indicate any symptoms associated with coronavirus-19. Ebola Screen: No symptoms or risks identified at this time. Initial Sepsis Screen: Does the patient meet any 2 criteria? No. Patient's initial sepsis screen is negative. Does the patient have a suspected source of infection? No. Patient's initial sepsis screen is negative. Risk Assessment: Do you want to hurt yourself or someone else? Patient reports no desire to harm self or others. Onset of symptoms was February 01, 2024. 22:19 Method Of Arrival: Ambulatory [facility] 22:19 Acuity: FLORES 3 6 Triage Assessment: 22:21 : Reports cramping, vaginal bleeding that is spotty. kc6 23:50 General: Appears in no apparent distress. comfortable, well developed, Behavior is pc2 calm, cooperative, appropriate for age. Pain: Complains of pain in abdomen Pain currently is 0 out of 10 on a pain scale. at worst was 3 out of 10 on a pain scale. Quality of pain is described as crampy. EENT: No signs and/or symptoms were reported regarding the EENT system. Neuro: Level of Consciousness is awake, alert, obeys commands, Oriented to person, place, time, situation, Appropriate for age Gait is steady. Cardiovascular: Patient's skin is warm and dry. Respiratory: Airway is patent Respiratory effort is even, unlabored, Respiratory pattern is regular, symmetrical. GI: Abdomen is round non-distended. : Reports cramping, vaginal bleeding that is spotty. Derm: Skin is pink, warm \T\ dry. Musculoskeletal: No signs and/or symptoms reported regarding the musculoskeletal system. 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 - Infectious Disease History:: Denies. - Social history:: Smoking status: Reported history of juuling and/or vaping. Screenin/28 00:06 [facility] ED Fall Risk Assessment (Adult) History of falling in the last 3 months, pc2 including since admission No falls in past 3 months (0 pts) Confusion or Disorientation No (0 pts) Intoxicated or Sedated No (0 pts) Impaired Gait Mobility Assist Device Used No (0 pt) Altered Elimination No (0 pt) Score/Fall Risk Level 0 - 2 = Low Risk Oriented to surroundings, Maintained a safe environment, Hourly rounding (assess needs \T\ fall precautionary measures) done. Abuse screen: Denies threats or abuse. Denies injuries from another. Nutritional screening: No deficits noted. Tuberculosis screening: No symptoms or risk factors identified. Assessment: 00:11 Reassessment: see triage. pc2 Vital Signs: 01/31 22:19 BP 127 / 89; Pulse 69; Resp 17 S; Temp 98.8(O); Pulse Ox 100% on R/A; Weight 89.81 kg kc (R); Height 5 ft. 2 in. (R); Pain 0/10; 02/01 00:11 BP 116 / 78; Pulse 66; Resp 16; Pulse Ox 100% on R/A; pc2 01/31 22:19 Body Mass Index 36.21 (89.81 kg, 157.48 cm) 6 01/31 22:19 Pain Scale: Adult kc ED Course: 01/31 22:16 Patient arrived in ED. ra3 22:18 Kennedi Winslow FNP-C is [facility]. kb 22:18 Elmo Dooley MD is Attending Physician. kb 22:21 Triage completed. kc6 22:21 Arm band placed on. kc6 22:42 US OB Limited In Process Unspecified. EDMS 23:01 Inserted saline lock: 22 gauge in right antecubital area, using aseptic technique. kc6 Blood collected. Flushed with 10 mL NS. 23:01 Abo/rh Typing Sent. kc6 23:01 Basic Metabolic Panel Sent. kc6 23:01 CBC with Diff Sent. kc6 23:01 Test, Urine Sent. kc6 23:01 Quantitative Hcg Sent. kc6 23:01 Urinalysis w/ reflexes Sent. [facility] 23:52 Cande Burleson, RN is Primary Nurse. pc2 02/01 00:06 Patient has correct armband on for positive identification. Call light in reach. pc2 Provided Education on: POC and time frame. 00:11 No provider procedures requiring assistance completed. pc2 00:12 IV discontinued, intact, bleeding controlled, No redness/swelling at site. Pressure pc2 dressing applied. Administered Medications: No medications were administered Medication: 00:06 VIS not applicable for this client. pc2 Outcome: 00:04 Discharge ordered by . sienna 00:11 Discharged to home ambulatory, with family, pc2 00:11 Condition: stable 00:11 Discharge instructions given to patient, Instructed on discharge instructions, follow up and referral plans. Demonstrated understanding of instructions, follow-up care, 00:20 Patient left the ED. pc2 Signatures: Dispatcher [employer] EDKennedi Pineda, MAURIZIO-Asya STEVEN-Mattie Kraft, RN RN kc6 Farida Trinidad ra3 Cande Burleson, RN RN pc2
--- NOTE | 2024-02-02 00:05 | EDPHYS ---
Physician Documentation [facility] Name: Thnah Camp Age: 23 yrs Sex: Female : 2000 Arrival Date: 02/01/2024 Time: 22:13 Bed 15 Private MD: ED Physician Elmo Dooley HPI: 01/31 23:52 This 23 yrs old Black Female presents to ER via Ambulatory with complaints of Vaginal kb Bleeding - 18wks preg. 23:52 Pt is a 23 year old female who presents for vaginal spotting and mild cramping. States kb she is currently 19 weeks . A0, LMP 10/02/23. 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 - Infectious Disease History:: Denies. - Social history:: Smoking status: Reported history of juuling and/or vaping. ROS: 23:52 Constitutional: As per HPI kb Exam: 23:52 Constitutional: This is a well developed, well nourished patient who is awake, alert, kb and in no acute distress. Head/Face: Normocephalic, atraumatic. ENT: Moist Mucous membranes Cardiovascular: Regular rate Respiratory: Respirations even and unlabored. No increased work of breathing. Talking in full sentences Abdomen/GI: Soft, non-tender. No distention Skin: Warm, dry with normal turgor. Normal color. MS/ Extremity: Pulses equal, no cyanosis. Neurovascular intact. Full, normal range of motion. Neuro: Awake and alert, GCS 15, oriented to person, place, time, and situation. Moves all extremities. Normal gait. Vital Signs: 22:19 BP 127 / 89; Pulse 69; Resp 17 S; Temp 98.8(O); Pulse Ox 100% on R/A; Weight 89.81 kg kc6 (R); Height 5 ft. 2 in. (R); Pain 0/10; 02/01 00:11 BP 116 / 78; Pulse 66; Resp 16; Pulse Ox 100% on R/A; pc2 01/31 22:19 Body Mass Index 36.21 (89.81 kg, 157.48 cm) [facility] 01/31 22:19 Pain Scale: Adult 6 MDM: 01/31 22:18 Patient medically screened. kb 23:53 Differential diagnosis: nonspecific abdominal pain, placenta previa, urinary tract kb infection, threatened . Data reviewed: vital signs, nurses notes. Historians other than the Patient: Spouse/Significant Other: significant other. Counseling: I had a detailed discussion with the patient and/or guardian regarding the historical points, exam findings, and any diagnostic results supporting the discharge/admit diagnosis, lab results, radiology results, the need for outpatient follow up, an OB/Gyne specialist, to return to the emergency department if symptoms worsen or persist or if there are any questions or concerns that arise at home. 01/31 22:18 Order name: Abo/rh Typing; Complete Time: 00:04 kb 01/31 22:18 Order name: Basic Metabolic Panel; Complete Time: 23:52 kb 01/31 22:18 Order name: CBC with Diff; Complete Time: 23:30 kb 01/31 22:18 Order name: Test, Urine; Complete Time: 23:50 kb 01/31 22:18 Order name: Quantitative Hcg; Complete Time: 23:52 kb 01/31 22:18 Order name: Urinalysis w/ reflexes; Complete Time: 23:56 kb 01/31 22:18 Order name: US OB Limited 01/31 22:18 Order name: IV Saline Lock; Complete Time: 23:01 kb 01/31 22:18 Order name: Labs collected and sent; Complete Time: 23:01 kb 01/31 22:18 Order name: NPO; Complete Time: 22:47 kb Administered Medications: No medications were administered Disposition Summary: 02/02/24 00:04 Discharge Ordered Notes: Location: Home kb Condition: Stable kb Diagnosis - Threatened kb Followup: kb - With: Emergency Department - When: As needed - Reason: Worsening of condition Followup: kb - With: Private Physician - When: 2 - 3 days - Reason: Recheck today's complaints, Continuance of care, Re-evaluation by your physician Discharge Instructions: - Discharge Summary Sheet kb - Vaginal Bleeding During , Second Trimester kb - Threatened Miscarriage, [id number] kb Forms: - Medication Reconciliation Form kb - Antibiotic Education kb - Prescription Opioid Use kb - Patient Portal Instructions kb - Leadership Thank You Letter kb Signatures: Dispatcher [employer] EDMS Winslow Kennedi, PROCESS PROJECT ENGINEER-C MAURIZIO-Mattie Kraft, RN RN kc6 Corrections: (The following items were deleted from the chart) 22:19 22:19 ABO/RH TYPING+BB.LAB.BRZ ordered. EDMS EDMS 22:19 22:19 BASIC METABOLIC PANEL+C.LAB.BRZ ordered. EDMS EDMS 22:19 22:19 CBC+H.LAB.BRZ ordered. EDMS EDMS 22:19 22:19 Test, Urine+UC.LAB.BRZ ordered. EDMS EDMS 22:19 22:19 QUANTITATIVE HCG+C.LAB.BRZ ordered. EDMS EDMS 22:19 22:19 Urinalysis+U.LAB.BRZ ordered. EDMS EDMS 22:19 22:19 OB Limited+US.RAD.BRZ ordered. EDMS EDMS 23:52 23:52 Positive for kb kb
[2024-02-02 01:33] VITALS: TEMP 98.8; O2SAT 100
[2024-02-02 01:38] VITALS: BP 116/78
--- NOTE | 2024-02-02 12:14 | RAD REPORT ---
EXAM DESCRIPTION: US - OB Limited - 02/01/2024 10:40 pm CLINICAL HISTORY: 23 years Female, VAGINAL BLEEDING COMPARISON: None TECHNIQUE: Transabdominal Grayscale and color Doppler ultrasound of the female pelvis was performed. FINDINGS: heart rate is 151 beats per minute with regular rhythm. Femur length 3.3 cm consistent with 20 weeks 3 days. Estimated date of delivery 06/17/2024 The placenta is anterior. Cervix measures 4.3 cm. IMPRESSION: Single live intrauterine with sonographic age 20 weeks 3 days Electronically signed by: William Jules MD 02/01/2024 11:18 PM CDT RP Workstation: [id number] Due to temporary technical issues with the PACS/Fluency reporting system, reports are being signed by the in house radiologist without review as a courtesy to ensure prompt reporting. The interpreting r adiologist is fully responsible for the content of the report.
== END 2024-02-02 00:20 | disposition home or self-care (01) ==
LOC: ER 22:13
DX: O20.0 Threatened abortion (principal); Z3A.20 20 weeks gestation of pregnancy
CPT/HCPCS: 36415; 76815; 80048; 81001; 81025; 84702; 85025; 86900; 86901; 99283